=== PATIENT | male | born 1940 | race Caucasian/White ===

== ENCOUNTER → 2016-09-13 | Outpatient (REF) | payer MEDICARE, OTHER ==
[~2016-09-13] MED LIST: APIDINJ SQ; ASPI1TAB PO; ATEN50TA2 PO; ATOR80TA59 PO; ATRO0.06; CLOP75TA2 PO; DULC5TAB PO; ENAL20TA PO; GABA-279 PO; GABA-283 PO; GLUC1INJ2 SQ; HEPA10004 IJ; INSUDET SC; INSUH10VL SC; LEVA12INH INH; LIPI80TA PO; MIRA3350 PO; PANT40TA2 PO; RANI1TAB6 PO; TENO1TAB4 PO; TYLE167L PO; VANC10005 INJ; ZOFR20TA IVP; ZOSY2INJ2 IV
== END ==
LOC: M LAB REF 16:45
PROVIDERS: ATTEND Internal Medicine Nephrology
DX: N39.0 Urinary tract infection, site not specified (principal)

== ENCOUNTER 2019-03-04 15:09 | Inpatient (IN) | payer MEDICARE, OTHER ==
[~2019-03-04] VITALS: Ht 180.3 cm; Wt 91.5 kg
[~2019-03-04 15:09] MED LIST changes: -ASPI1TAB PO; +ASPI81TA26 PO; +GABA-1171 PO; -GABA-279 PO; -GABA-283 PO; +GABA-845 PO; -PANT40TA2 PO; +PANT40TA3 PO; +RANI-356 PO; -RANI1TAB6 PO; -ZOFR20TA IVP; +ZOFR4TAB16 IVP
[2019-03-04 16:05] LABS: BASO # 0.1 10^3/uL (0.0-0.2); BASO % 0.9 % (0.0-1.0); EOS # 0.1 10^3/uL (0.0-0.5); HEMATOCRIT 39.8 % (42.0-52.0); HEMOGLOBIN 13.1 g/dl (13.5-17.5); LYMPH # 2.2 10^3/uL (1.5-5.0); LYMPH % 23.7 % (24.0-44.0); MEAN CORPUSCULAR HEMOGLOBIN 29.4 pg (27.0-33.0); MEAN CORPUSCULAR HGB CONC 32.9 g/dl (32.0-36.5); MEAN CORPUSCULAR VOLUME 89.4 fl (80.0-96.0); MONO # 1.6 10^3/uL (0.0-0.8); MONO % 17.7 % (0.0-5.0); NEUTROPHILS # 5.1 10^3/uL (1.5-8.5); NEUTROPHILS % 56.3 % (36.0-66.0); RED BLOOD COUNT 4.45 10^6/uL (4.30-6.10); WHITE BLOOD COUNT 9.1 10^3/uL (4.0-10.0)
[2019-03-04 16:10] LABS: PLATELET COUNT, AUTOMATED 91 10^3/uL (150-450)
[2019-03-04] MEDS ORDERED: NITROGLYCERIN 2% OINT 1 GM *U/D* PKT TOP ONE (16:15)
[2019-03-04 16:29] LABS: INR 1.07; PROTHROMBIN TIME 13.6 SECONDS (11.8-14.0)
[2019-03-04 16:31] LABS: ALBUMIN 2.8 GM/DL (3.2-5.2); BILIRUBIN,DIRECT 0.2 MG/DL (0.0-0.2); BILIRUBIN,TOTAL 0.6 MG/DL (0.2-1.0); CALCIUM LEVEL 8.6 MG/DL (8.8-10.2); CK-MB VALUE MASS 6.8 NG/ML (<3.6); CREATININE FOR GFR 3.52 MG/DL (0.70-1.30); MB/CK RELATIVE INDEX 2.43 (< OR =4); TOTAL PROTEIN 6.1 GM/DL (6.4-8.2); TROPONIN I 0.08 NG/ML (< 0.10)
[2019-03-04] MEDS ORDERED: ALBUTEROL SULFATE 2.5 MG/0.5 ML INH NEB SOLN INH ONE (17:00)
[2019-03-04] MEDS ORDERED: AMIL5TAB4 PO (17:07)
[2019-03-04] MEDS ORDERED: ALBU83IN NEB (17:07)
[2019-03-04] MEDS ORDERED: ROSU5TAB5 PO (17:07)
[2019-03-04] MEDS ORDERED: NITR0.4S14 PO (17:07)
[2019-03-04] MEDS ORDERED: ASPI81TA26 PO (17:07)
[2019-03-04] MEDS ORDERED: METO1TAB7 PO (17:07)
[2019-03-04] MEDS ORDERED: FURO40TA2 PO (17:07)
--- NOTE | 2019-03-04 17:37 | REP ---
Portable chest, 05:23 p.m., single AP view with the the patient semi upright: Comparison is 02/04/2015. There are bilateral interstitial and alveolar infiltrates as an interval change. There are sternotomy wires, unchanged. Cardiac size is mildly enlarged but is magnified by portable positioning. No pleural effusions are identified. Impression: Bilateral alveolar and interstitial infiltrates. Mild cardiomegaly. Electronically Signed by Flaquito Mcintosh MD 03/04/2019 05:28 P
[2019-03-04] MEDS ORDERED: FUROSEMIDE 40 MG/4 ML VIAL (J1940) IV ONE (17:45)
[2019-03-04] MEDS ORDERED: GLUC3SPR NS (17:56)
[2019-03-04] MEDS ORDERED: D31000TA PO (17:56)
[2019-03-04] MEDS ORDERED: RANI15TA PO (17:56)
[2019-03-04] MEDS ORDERED: GLUC1KIT IM (17:56)
[2019-03-04] MEDS ORDERED: ACET-683 PO (17:56)
[2019-03-04] MEDS ORDERED: GABA-843 PO (17:56)
[2019-03-04] MEDS: FUROSEMIDE 40 MG/4 ML VIAL (J1940) IV SCH (19:00)
[2019-03-04] MEDS ORDERED: GLUCAGON FOR INJ 1 MG VIAL (J1610) IM PRN (19:15)
[2019-03-04] MEDS ORDERED: HumaLOG INSULIN (NovoLOG) PER UNIT SC SCH (19:15)
[2019-03-04] MEDS ORDERED: NITROGLYCERIN 0.4 MG SUBL TABLET SL PRN (19:15)
--- NOTE | 2019-03-04 19:15 | HPEPDOC ---
General Date of Admission 03/04/19 Date of Service: Mar 04, 2019 Attending Physician: MONICO LALA DO Chief Complaint The patient is a 78-year-old male admitted with a reason for visit of Kaitlin rangel. Source: Patient, Family Exam Limitations: No limitations Timing/Duration: Day(s) Severity: Moderate Associated Symptoms: Shortness of breath, Weakness History of Present Illness Patient is 78 years old male with past mental history of chronic kidney disease s, spinal stenosis, back surgery, prostate cancer with previous radiation, type 2 diabetes with nephropathy, neuropathy, coronary artery diseases status post bypass graft in 1991 presented hospital with increased shortness of breath. Patient stated that his shortness of breath has been progressive increased for past few months. Today he was in the auto body mechanic office Dr. Frankel found him volume overloaded send him to ER. In ER patient was found to have BNP around 30,000, GFR 18, chest x-ray showed bilateral interstitial congestion with cardiomegaly. I talked to Dr. Frankel by phone, he recommended start Lasix 40 mg IV every 6. Patient denies fever, chills, nausea, vomiting, diarrhea or dysuria. Patient is afebrile and does not have leukocytosis Home Medications Scheduled Amiloride HCl (Amiloride HCl) 5 Mg Tablet, 10 MG PO DAILY, (Reported) Aspirin (Aspirin EC) 81 Mg Tablet.dr, 81 MG PO DAILY, (Reported) Cholecalciferol (Vitamin D3) (Vitamin D3) 1,000 Unit Tablet, 1,000 UNIT PO DAILY, (Reported) Furosemide (Furosemide) 40 Mg Tablet, 60 MG PO DAILY, (Reported) Gabapentin (Gabapentin) 300 Mg Capsule, 600 MG PO BID, (Reported) Insulin Human Lispro (Novolog) 100 U/Ml Inj, 1 DOSE SC ASDIRECTED, (Reported) VIA INSULIN PUMP Metoprolol Succinate (Metoprolol Succinate) 50 Mg Tab.er.24h, 50 MG PO DAILY, (Reported) Ranitidine Hcl (Ranitidine HCl) 150 Mg Tablet, 1 TAB PO BID, (Reported) Rosuvastatin Calcium (Rosuvastatin Calcium) 5 Mg Tablet, 5 MG PO QHS, (Reported) Scheduled PRN Acetaminophen (Acetaminophen) 500 Mg Tablet, 1,000 MG PO Q6H PRN for PAIN, (Reported) Albuterol Sulf (Albuterol Sulfate) 2.5 Mg/3 Ml Vial.neb, 2.5 MG NEB Q4H PRN for SHORTNESS OF BREATH, (Reported) Glucagon (Baqsimi) 3 Mg [place], 3 MG NS ASDIRECTED PRN for BLOOD SUGAR < 50, (Reported) Glucagon,Human Recombinant (Glucagon Emergency Kit) 1 Mg Vial, 1 MG IM ASDIREC RADHA PRN for BLOOD SUGAR < 50, (Reported) Nitroglycerin (Nitroglycerin) 0.4 Mg Tab.subl, 0.4 MG PO Q5MP PRN for CHEST PAIN, (Reported) Allergies Coded Allergies: No Known Allergies (Unverified , 03/04/19) Past Medical History Medical History Coronary artery diseases, bypass surgery in 1991, chronic kidney diseases, history of prostate cancer treated with radiation and surgery, diabetes, neuropathy, spinal stenosis, hyperlipidemia Surgical History 6 previous laminectomies, bypass surgery, surgical treatment of prostate cancer Family History Father from heart attack Social History * Smoker: former Smoker Alcohol: Denies Drugs: denies A-FIB/CHADSVASC A-FIB History Current/History of A-Fib/PAF?: No Current PO Anticoag Therapy: No Review of Systems Constitutional: Denies: Chills, Fever Eyes: Denies: Pain, Vision change ENT: Denies: Head Aches, Ear Pain Skin: Denies: Rash, Lesions Pulmonary: Reports: Dyspnea Cardiovascular: Reports: Orthopnea, Paroxysmal Noc. Dyspnea; Denies: Chest Pain, Palpitations Gastrointestinal: Denies: Nausea, Vomiting Genitourinary: Denies: Dysuria, Frequency Hematologic: Denies: Bruising, Bleeding Excessively Endocrine: Denies: Polydipsia, Polyphagia Musculoskeletal: Denies: Neck Pain, Back Pain Neurological: Denies: Weakness, Numbness Psych: Reports: Mood Normal; Denies: Anxiety Physical Examination General Exam: Positive: Alert, Cooperative Eye Exam: Positive: PERRLA ENT Exam: Positive: Atraumatic Neck Exam: Positive: Supple, JVD Chest Exam: Positive: Diminished, Other (crackles bilaterally) Heart Exam: Positive: Rate Normal Telemetry: Positive: No significant arrhythmia Abdomen Exam: Positive: Normal bowel sounds Extremity Exam: Positive: Swelling (+1 pitting edema) Skin Exam: Positive: Nl turgor and temperature Neuro Exam: Positive: Strength at 5/5 X4 ext Psych Exam: Positive: Mental status NL Vital Signs Vital Signs Date Time Temp Pulse Resp B/P (MAP) Pulse Ox O2 Delivery O2 Flow Rate FiO2 03/04/19 18:00 82 169/95 (119) 03/04/19 17:30 92 03/04/19 17:09 Room Air 03/04/19 15:10 97.2 42 Laboratory Data Labs 24H Laboratory Tests 2 03/04/19 15:51: Immature Granulocyte % (Auto) 0.4, White Blood Count 9.1, Red Blood Count 4.45, Hemoglobin 13.1L, Hematocrit 39.8L, Mean Corpuscular Volume 89.4, Mean Corpuscular Hemoglobin 29.4, Mean Corpuscular Hemoglobin Concent 32.9, Red Cell Distribution Width 17.0H, Platelet Count 91L, Neutrophils (%) (Auto) 56.3, Lymphocytes (%) (Auto) 23.7L, Monocytes (%) (Auto) 17.7H, Eosinophils (%) (Auto) 1.0, Basophils (%) (Auto) 0.9, Neutrophils # (Auto) 5.1, Lymphocytes # (Auto) 2.2, Monocytes # (Auto) 1.6H, Eosinophils # (Auto) 0.1, Basophils # (Auto) 0.1, Nucleated Red Blood Cells % (auto) 0.0, Immature Platelet Fraction 11.8H, Prothrombin Time 13.6, Prothromb Time International Ratio 1.07, Anion Gap 10, Glomerular Filtration Rate 18.0L, Calcium Level 8.6L, Aspartate Amino Transf (AST/SGOT) 23, Alanine Aminotransferase (ALT/SGPT) 20, Alkaline Phosphatase 83, Total Bilirubin 0.6, Direct Bilirubin 0.2, Total Creatine Kinase 280, Creatine Kinase MB 6.8H, Creatine Kinase MB Relative Index 2.43, Troponin I 0.08, [id number]-Btn-[id number]-Type Natriuretic Peptide 85304B, Total Protein 6.1L, Albumin 2.8L, Albumin/Globulin Ratio 0.85L CBC/BMP Laboratory Tests 03/04/19 15:51 Red Blood Count 4.45, Mean Corpuscular Volume 89.4, Mean Corpuscular Hemoglobin 29.4, Mean Corpuscular Hemoglobin Concent 32.9, Red Cell Distribution Width 17.0 H, Neutrophils (%) (Auto) 56.3, Lymphocytes (%) (Auto) 23.7 L, Monocytes (%) (Auto) 17.7 H, Eosinophils (%) (Auto) 1.0, Basophils (%) (Auto) 0.9, Neutrophils # (Auto) 5.1, Lymphocytes # (Auto) 2.2, Monocytes # (Auto) 1.6 H, Eosinophils # (Auto) 0.1, Basophils # (Auto) 0.1 Assessment/Plan Patient is 78 years old male with past mental history of chronic kidney diseases, spinal stenosis, back surgery, prostate cancer with previous radiation, type 2 diabetes with nephropathy, neuropathy, coronary artery diseases status post bypass graft in 1991 presented hospital with increased shortness of breath. Patient stated that his shortness of breath has been progressive increased for past few months. Problems (1) CHF exacerbation Status: Acute Problem Text: Severe volume overload, chest x-ray shows cardiomegaly with vascular congestion Cardiac diet I's and O's Lasix 40 mg IV every 6 Echo (2) Acute renal failure superimposed on stage 4 chronic kidney disease Status: Acute Problem Text: Dr. Frankel follows him continue monitor bmp , creatinine (3) Diabetes Status: Chronic Problem Text: Patient has his own insulin pump ACHS Plan / VTE VTE Prophylaxis Ordered?: Yes MONICO LALA DO Mar 04, 2019 19:15
[2019-03-04] MEDS ORDERED: GLUCAGON FOR INJ 1 MG VIAL (J1610) SC PRN (19:30)
[2019-03-04] MEDS ORDERED: PILL CUTTER 1 EACH XX PRN (19:30)
[2019-03-04] MEDS ORDERED: GLUCOSE 4 GM CHEW TABLET PO PRN (19:30)
[2019-03-04] MEDS ORDERED: DEXTROSE 50% 50 ML SYRINGE IV PRN (19:30)
[2019-03-04] MEDS ORDERED: HEPARIN SOD (PORCINE) 5000 UNITS/ML VIAL SC SCH (21:00)
[2019-03-04 21:50] VITALS: BP 155/88
[2019-03-04] MEDS: FAMOTIDINE 20 MG TAB PO SCH (21:57)
[2019-03-04] MEDS: GABAPENTIN 300 MG CAP PO SCH (21:57)
[2019-03-04] MEDS: ROSUVASTATIN 10 MG TAB (CRESTOR) PO SCH (21:57)
[2019-03-04 23:37] LABS: MAGNESIUM LEVEL 2.3 MG/DL (1.8-2.4); PHOSPHORUS LEVEL 4.7 MG/DL (2.5-4.9)
[2019-03-05] MEDS: FUROSEMIDE 40 MG/4 ML VIAL (J1940) IV SCH ×4 (00:50→18:41)
[2019-03-05] MEDS: ALBUTEROL SULFATE 2.5 MG/0.5 ML INH NEB SOLN NEB PRN ×3 (06:10→18:34)
[2019-03-05 06:18] VITALS: BP 110/80
[2019-03-05 06:49] LABS: CALCIUM LEVEL 8.6 MG/DL (8.8-10.2); CREATININE FOR GFR 3.36 MG/DL (0.70-1.30); MAGNESIUM LEVEL 2.3 MG/DL (1.8-2.4); POTASSIUM SERUM 4.1 MEQ/L (3.5-5.1)
--- NOTE | 2019-03-05 07:34 | ECGEPIP ---
[facility] - ED Test Date: 2019-03-04 Pat Name: ELAINA REES Department: Room: - Gender: Male Set Up Worker: : 1940 Requested By: LEATHA Peter Order Number: [id number] Reading MD: Soham Ndiaye Measurements Intervals [place] Rate: 78 P: 53 FL: 168 QRS: -5 QRSD: 108 T: 43 QT: 411 QTc: 471 Interpretive Statements SINUS RHYTHM POSSIBLE LEFT ATRIAL ENLARGEMENT LEFT VENTRICULAR HYPERTROPHY AND ST-T CHANGE, NEW COMPARED TO 02/04/15 INFERIOR MYOCARDIAL INFARCTION, PROBABLY OLD Electronically Signed on 03-05-2019 7:34:00 EDT by Soham Ndiaye
[2019-03-05 07:35] LABS: HEMOGLOBIN 13.4 g/dl (13.5-17.5); MEAN CORPUSCULAR HEMOGLOBIN 28.6 pg (27.0-33.0); MEAN CORPUSCULAR HGB CONC 31.9 g/dl (32.0-36.5); MEAN CORPUSCULAR VOLUME 89.7 fl (80.0-96.0); RED BLOOD COUNT 4.68 10^6/uL (4.30-6.10); WHITE BLOOD COUNT 9.3 10^3/uL (4.0-10.0)
[2019-03-05 07:37] LABS: PLATELET COUNT, AUTOMATED 92 10^3/uL (150-450)
[2019-03-05] MEDS: ASPIRIN 81 MG ENTERIC TAB PO SCH (08:23)
[2019-03-05] MEDS: FAMOTIDINE 20 MG TAB PO SCH ×2 (08:23→21:01)
[2019-03-05] MEDS: GABAPENTIN 300 MG CAP PO SCH ×2 (08:23→21:01)
[2019-03-05] MEDS: METOPROLOL SUCC (TopROL XL) 50MG **XL** TAB PO SCH (08:24)
[2019-03-05] MEDS: aMILoride 5 MG TAB PO SCH (08:24)
[2019-03-05] MEDS: VITAMIN D 1,000 INTERNATIONAL UNITS TABLET PO SCH (08:24)
--- NOTE | 2019-03-05 13:18 | IPNPDOC ---
Text Note Date of Service The patient was seen on 03/05/19. NOTE Subjective: Patient stated that he feels better today. His breathing markedly improved. Patient had good urine output. Patient denies fever, chills, nausea, vomiting, palpitations, diarrhea Objective: General Exam: Positive: Alert, Cooperative Eye Exam: Positive: PERRLA ENT Exam: Positive: Atraumatic Neck Exam: Positive: Supple, JVD 3-4 cm Chest Exam: Positive: Diminished bilaterally Heart Exam: Positive: Rate Normal Telemetry: Positive: No significant arrhythmia Abdomen Exam: Positive: Normal bowel sounds Extremity Exam: Positive: Swelling (+1 pitting edema) Skin Exam: Positive: Nl turgor and temperature Neuro Exam: Positive: Strength at 5/5 X4 ext Psych Exam: Positive: Mental status NL Assessment/Plan Patient is 78 years old male with past mental history of chronic kidney diseases, spinal stenosis, back surgery, prostate cancer with previous radia tion, type 2 diabetes with nephropathy, neuropathy, coronary artery diseases status post bypass graft in 1991 presented to the hospital with increased shortness of breath. Patient stated that his shortness of breath has been progressive increased for past few months. Problems (1) CHF exacerbation Status: Acute Problem Text: Severe volume overload, chest x-ray shows cardiomegaly with vascular congestion. BNP around 30,000 Good urine output around 2.2 L since admission Cardiac diet I's and O's Lasix IV Echo pending (2) Acute renal failure superimposed on stage 4 chronic kidney disease Status: Acute Problem Text: Dr. Frankel follows him continue monitor bmp , creatinine (3) Diabetes Status: Chronic Problem Text: Patient has his own insulin pump ACHS VS,Fishbone, I+O VS, Fishbone, I+O Laboratory Tests 03/04/19 15:51 Red Blood Count 4.45, Mean Corpuscular Volume 89.4, Mean Corpuscular Hemoglobin 29.4, Mean Corpuscular Hemoglobin Concent 32.9, Red Cell Distribution Width 17.0 H, Neutrophils (%) (Auto) 56.3, Lymphocytes (%) (Auto) 23.7 L, Monocytes (%) (Auto) 17.7 H, Eosinophils (%) (Auto) 1.0, Basophils (%) (Auto) 0.9, Neutrophils # (Auto) 5.1, Lymphocytes # (Auto) 2.2, Monocytes # (Auto) 1.6 H, Eosinophils # (Auto) 0.1, Basophils # (Auto) 0.1 03/05/19 06:00 Calcium Level 8.6 L 03/05/19 07:19 Red Blood Count 4.68, Mean Corpuscular Volume 89.7, Mean Corpuscular Hemoglobin 28.6, Mean Corpuscular Hemoglobin Concent 31.9 L, Red Cell Distribution Width 17.0 H Vital Signs Date Time Temp Pulse Resp B/P (MAP) Pulse Ox O2 Delivery O2 Flow Rate FiO2 03/05/19 06:18 98.0 83 20 110/80 (90) 97 03/04/19 17:09 Room Air I&O- Last 24 Hours up to 6 AM 03/05/19 06:00 Intake Total 720 ml Output Total 3000 ml Balance -2280 ml MONICO LALA DO Mar 05, 2019 13:18
[2019-03-05 14:00] VITALS: BP 147/83
--- NOTE | 2019-03-05 14:25 | CR ---
DATE OF CONSULTATION: 03/05/2019 REASON FOR CONSULTATION: Acute renal failure and decompensated congestive heart failure. HISTORY OF PRESENT ILLNESS: Mr. Taveras is a 78-year-old gentleman with known history of longstanding insulin-requiring diabetes, hypertension, stage 4 of chronic kidney disease, spinal stenosis with prior back surgery, history of prostate cancer status post radiation, and history of coronary artery disease. He has been short of breath for the last several days and was admitted to [facility] for a couple of days and treated for possible chronic obstructive pulmonary disease (COPD) exacerbation. He was discharged just a couple of days ago. I saw him yesterday in the office and he was still quite short of breath and noticed to be in decompensated congestive heart failure. Hospitalization was advised and the patient agreed and came to [facility] for admission. I did discuss with Dr. Varner about his treatment plan over the phone. The patient is seen this morning. PAST MEDICAL AND SURGICAL HISTORY (Significant for): 1. Longstanding insulin-requiring diabetes, currently on insulin pump. 2. Coronary artery disease, status post coronary artery bypass graft (CABG) in 1991. 3. History of diastolic congestive heart failure. 4. History of stage 4 of chronic kidney disease. 5. History of peripheral neuropathy. 6. History of spinal stenosis, status post back surgery and removal of hardware from back due to infection. 7. History of hyperlipidemia. 8. History of chronic degenerative arthritis. 9. Secondary hyperparathyroidism. 10. History of gout. MEDICATIONS: Chronic medications include amiloride 5 mg 2 tablets daily, aspirin 81 mg daily, vitamin D 1000 units daily, furosemide 60 mg daily, gabapentin 300 mg 2 tablets twice a day, NovoLog insulin via insulin pump, metoprolol 50 mg daily, ranitidine 150 mg twice a day, Crestor 5 mg daily, albuterol inhaler as needed for dyspnea and nitroglycerin 0.4 mg as needed for chest pain. PERSONAL AND SOCIAL HISTORY: The patient denies any alcohol or drug use. He is a former smoker. FAMILY HISTORY: Negative for end-stage renal disease. His father from heart problems. REVIEW OF SYSTEMS: The patient denies any fever or chills. He is short of breath even at rest, but gets worse on exertion. Ears, nose and throat are unremarkable. Cardiovascular system is negative for chest pain, but he does have some leg edema. Respiratory system is significant for history of COPD. He reports worsening dyspnea on exertion. Denies any hemoptysis or pleuritic type of chest pain. Gastrointestinal (GI) system negative for nausea, vomiting or diarrhea. Genitourinary () system is negative for dysuria or hematuria. Musculoskeletal system significant for chronic degenerative arthritis and chronic back pain. Endocrine system is significant for insulin-requiring diabetes and secondary hyperparathyroidism. Neurological system is significant for spinal stenosis and peripheral neuropathy. Hematological system significant for thrombocytopenia. He is not on any long-term anticoagulation. PHYSICAL EXAMINATION: The patient is awake, alert and without any acute distress. Temperature 97.6 degrees Fahrenheit, heart rate 83 per minute and respiratory rate 20 per minute. Blood pressure 110/80 mmHg and oxygen saturation 97%. Head is atraumatic. Neck is supple and jugular venous distention (JVD) is about 11-12 cm above sternal angle. Pupils equal and reactive to light and sclera is anicteric. Extraocular muscles are intact. Heart sounds are regular and lungs have bilateral rales. Abdomen: Soft and nontender. Bowel sounds normal. Extremities: Without any cyanosis or clubbing. Lower extremity edema is at least 1+ bilaterally. Neurologically, he is awake, alert and oriented times three. LABORATORY DATA: His hemoglobin was 13 and hematocrit 39.8 on admission yesterday and WBC count 9.1. BUN was 49 and creatinine about 3.9. A BNP level was 30,665. Today, his sodium is 138, potassium 4.1, CO2 24, BUN 46 and creatinine 3.36. Glucose 102 and calcium 8.6. PROBLEMS: 1. Acute renal failure superimposed on chronic kidney disease. The patient has known history of stage 4 of chronic kidney disease at baseline which is probably related to vascular disease and diabetic nephropathy. Acute renal failure is most likely related to decompensated congestive heart failure. At present, he does not have any uremic symptoms and no electrolyte or metabolic complications. There is no emergent need for dialysis as he is being diuresed. His kidney function will need to be monitored on a daily basis. 2. cute on chronic diastolic congestive heart failure. His volume status is still decompensated. He has diuresed very well since admission with almost 2 liters of negative fluid balance. I would recommend to continue with current diuretic regimen for next 24-48 hours. 3. Hypertension. Blood pressure is usually well controlled with current medications including diuretic and metoprolol. He is being diuresed now with intravenous Lasix. We can continue with amiloride in order to prevent hypokalemia. 4. Spinal stenosis and chronic back pain. The patient has been taking narcotic medications and is now planning to get a dorsal stimulator implanted. He understands not to use any nonsteroidal anti-inflammatory drugs (NSAIDs). Thank you for involving me in the care of Mr. Taveras. I will follow him along with you.
[2019-03-05 20:00] VITALS: BP 140/80
[2019-03-05] MEDS: ROSUVASTATIN 10 MG TAB (CRESTOR) PO SCH (21:02)
[2019-03-06] MEDS: FUROSEMIDE 40 MG/4 ML VIAL (J1940) IV SCH ×5 (00:34→23:36)
[2019-03-06 06:48] LABS: HEMATOCRIT 44.1 % (42.0-52.0); HEMOGLOBIN 14.1 g/dl (13.5-17.5); MEAN CORPUSCULAR HEMOGLOBIN 28.7 pg (27.0-33.0); MEAN CORPUSCULAR VOLUME 89.8 fl (80.0-96.0); RED BLOOD COUNT 4.91 10^6/uL (4.30-6.10); WHITE BLOOD COUNT 11.6 10^3/uL (4.0-10.0)
[2019-03-06 06:49] LABS: PLATELET COUNT, AUTOMATED 99 10^3/uL (150-450)
[2019-03-06 06:57] VITALS: BP 146/80
[2019-03-06 07:04] LABS: CALCIUM LEVEL 8.9 MG/DL (8.8-10.2); CREATININE FOR GFR 3.31 MG/DL (0.70-1.30); GLOMERULAR FILTRATION RATE 19.3 (>42); MAGNESIUM LEVEL 2.5 MG/DL (1.8-2.4)
[2019-03-06] MEDS: GABAPENTIN 300 MG CAP PO SCH ×2 (08:39→21:18)
[2019-03-06] MEDS: aMILoride 5 MG TAB PO SCH (08:39)
[2019-03-06] MEDS: FAMOTIDINE 20 MG TAB PO SCH ×2 (08:39→21:18)
[2019-03-06 08:40] VITALS: BP 146/81
[2019-03-06] MEDS: ASPIRIN 81 MG ENTERIC TAB PO SCH (08:40)
[2019-03-06] MEDS: METOPROLOL SUCC (TopROL XL) 50MG **XL** TAB PO SCH (08:40)
[2019-03-06] MEDS: VITAMIN D 1,000 INTERNATIONAL UNITS TABLET PO SCH (08:40)
[2019-03-06] MEDS ORDERED: MIRALAX *UNIT DOSE* 17GM PACKET PO PRN (11:00)
--- NOTE | 2019-03-06 12:47 | IPNPDOC ---
Text Note Date of Service The patient was seen on 03/06/19. NOTE Subjective: No any acute events overnight. Shortness of breath resolved. Patient had good urine output. Patient denies fever, chills, nausea, vomiting, palpitations, diarrhea Objective: General Exam: Positive: Alert, Cooperative Eye Exam: Positive: PERRLA ENT Exam: Positive: Atraumatic Neck Exam: Positive: Supple, no JVD Chest Exam: Positive: Diminished bilaterally Heart Exam: Positive: Rate Normal Telemetry: Positive: No significant arrhythmia Abdomen Exam: Positive: Normal bowel sounds Extremity Exam: Positive: Swelling (+1 pitting edema) Skin Exam: Positive: Nl turgor and temperature Neuro Exam: Positive: Strength at 5/5 X4 ext Psych Exam: Positive: Mental status NL Assessment/Plan Patient is 78 years old male with past mental history of chronic kidney diseases, spinal stenosis, back surgery, prostate cancer with previous radiation, type 2 diabetes with nephropathy, neuropathy, coronary artery diseases status post bypass graft in 1991 presented to the hospital with increased shortness of breath. Patient stated that his shortness of breath has been progressive increased for past few months. Problems (1) CHF exacerbation Status: Acute Problem Text: Severe volume overload, chest x-ray shows cardiomegaly with vascular congestion. BNP around 30,000 Patient continues to have a good urine output Cardiac diet I's and O's Lasix IV Echo pending (2) Acute renal failure superimposed on stage 4 chronic kidney disease Status: Acute Problem Text: Dr. Frankel follows him continue monitor bmp , creatinine (3) Diabetes Status: Chronic Problem Text: Patient has his own insulin pump ACHS VS,Fishbone, I+O VS, Fishbone, I+O Laboratory Tests 03/06/19 06:26 Red Blood Count 4.91, Mean Corpuscular Volume 89.8, Mean Corpuscular Hemoglobin 28.7, Mean Corpuscular Hemoglobin Concent 32.0, Red Cell Distribution Width 16.9 H, Calcium Level 8.9 Vital Signs Date Time Temp Pulse Resp B/P (MAP) Pulse Ox O2 Delivery O2 Flow Rate FiO2 03/06/19 08:40 86 146/81 03/06/19 06:57 99.0 18 92 03/04/19 17:09 Room Air I&O- Last 24 Hours up to 6 AM 03/06/19 06:00 Intake Total 1740 ml Output Total 950 ml Balance 790 ml MONICO LALA DO Mar 06, 2019 12:47
--- NOTE | 2019-03-06 13:36 | ECHO ---
DATE OF STUDY: 03/06/2019 DATE OF : 1940 AGE: 78 REFERRING PROVIDER: Dr. Oleksandr Samuel REASON FOR THE STUDY: Cardiac dysrhythmia. 2D MEASUREMENTS: IVS: 1.0 cm LV: 4.4 cm LVPW: 1.0 cm LA: 3.8 cm Aorta: 2.9 cm RV: 2.4 cm IVC: 2.3 cm DOPPLER MEASUREMENTS: Peak velocity across the aortic valve: 1.5 m/s Peak velocity cross the LVOT: 0.92 m/s Mitral E: 1.3 Mitral A: 0.69 with a ratio of 1.9 Maximum tricuspid valve velocity: 3.2 m/s 2D COMMENTS: 1. Normal left ventricular size and wall thickness, but left ventricular systolic function appeared to be mildly depressed. There was mild global hypokinesis with an estimated left ventricular systolic ejection fraction of 45%. 2. Subjectively, the left atrium appeared to be mildly enlarged. Normal right atrium and right ventricle. 3. The atrial septum appeared to be normal without evidence of defect or shunt. 4. Normal aortic root. 5. No pericardial effusion seen. 6. Mildly calcified aortic valve with normal leaflet excursion. Mildly calcified mitral annulus with normal anterior mitral valve leaflet motion. Normal tricuspid valve and pulmonic valves. The proximal pulmonary artery branches were not well visualized. 7. The inferior vena cava was mildly enlarged; central venous pressure might be elevated. DOPPLER: It detects mild aortic regurgitation, mild mitral regurgitation, and mild tricuspid regurgitation. The calculated pulmonary artery systolic pressure varies between 40 to 50 mmHg. Abnormal relaxation pattern was noted across the mitral valve annulus, consistent with features of grade 2 left ventricular diastolic dysfunction. IMPRESSION: 1. Probably mild global left ventricular systolic dysfunction with global hypokinesis. There are some features of grade 2 left ventricular diastolic dysfunction; left ventricular end diastolic pressure might be elevated. 2. Aortic valve sclerosis with mild aortic regurgitation but no aortic stenosis. 3. Mitral annulus calcification with mild mitral regurgitation. 4. Mild tricuspid regurgitation with probably moderate pulmonary hypertension.
--- NOTE | 2019-03-06 14:27 | IPN ---
DATE OF SERVICE: 03/06/2019 SUBJECTIVE: The patient was seen and examined at the bedside today morning. The patient reports that the shortness of breath is getting better. He continues to be on IV diuretics. Urine output was more than 2 liters yesterday. Creatinine is stable at 3.3 since yesterday. The patient is also getting nebulizations for wheezing. He denies any active complaints at this time. OBJECTIVE: Vital Signs: Temperature is 99 degrees Fahrenheit, blood pressure 146/80, pulse is 83, respiratory rate of 18, saturating 92% on room air. Intake and Output: Urine output recorded as 2.2 liters yesterday. Urine output since overnight is not recorded so far at this time. Weight in the bed scale is not available. PHYSICAL EXAMINATION: General: The patient is awake, alert, oriented times three, laying in bed in no apparent distress. Head and Neck Exam: Extraocular muscles intact. Pupils equally round and reactive to light. Mucous membranes are moist. Neck is supple. There is mildly elevated jugular venous distention (JVD). Cardiovascular: S1 and S2. Regular rate. 2+ edema of the bilateral ankles. Respiratory: Mild expiratory rhonchi at the bases, otherwise bilateral equal air entry. Abdomen: Soft. Positive bowel sounds. Nontender. No organomegaly. Musculoskeletal: No clubbing or cyanosis. Pulses are 2+. RESIDENTIAL COLLECTIONS: No focal deficit. Power is 5/5 in all extremities. LAB REVIEW: CBC showed WBC 11.6, hemoglobin 14.1, platelets of 99. BMP showed sodium 138, potassium 4, chloride 102, bicarb 29, BUN 51, creatinine is 3.3, phosphorus 2.5. CURRENT INPATIENT MEDICATIONS: The patient's medications were all reviewed by me continues to be on amiloride 10 mg daily, Lasix 40 mg IV q. six hourly. He is also getting nebulizations p.r.n. q. four. No other change in the medications today as compared with yesterday. ASSESSMENT/PLAN: 1. Acute kidney injury superimposed on chronic kidney disease Stage 4. The patient's renal function has been staying stable. GFR is around 19. He is tolerating the IV diuretics. No urgent need of hemodialysis. Continue the optimization of fluid status with Lasix [id number] q. six hourly. 2. Acute on chronic decompensated diastolic congestive heart failure. The patient is making improvement. He is making more than 2 liters of urine a day. Continue Lasix 40 mg q. six hourly and amiloride 10 mg daily. Electrolytes are within the acceptable range. 3. COPD. Continue the nebulizations at this time as well. 4. Hypertension with hypertensive heart disease and chronic kidney disease. Blood pressure is optimal at this time. Continue current dose of diuretics along with metoprolol 50 mg p.o. daily.
[2019-03-06 14:33] VITALS: BP 142/73
[2019-03-06] MEDS: ALBUTEROL SULFATE 2.5 MG/0.5 ML INH NEB SOLN NEB PRN (17:36)
[2019-03-06 20:49] VITALS: BP 155/84
[2019-03-06] MEDS: ROSUVASTATIN 10 MG TAB (CRESTOR) PO SCH (21:18)
[2019-03-06] MEDS: ACETAMINOPHEN 500 MG TAB PO PRN (21:19)
[2019-03-06 23:37] VITALS: BP 151/80
[2019-03-07] MEDS: FUROSEMIDE 40 MG/4 ML VIAL (J1940) IV SCH (05:54)
[2019-03-07 06:22] VITALS: BP 148/82
[2019-03-07 07:32] LABS: HEMATOCRIT 45.7 % (42.0-52.0); HEMOGLOBIN 14.4 g/dl (13.5-17.5); MEAN CORPUSCULAR HEMOGLOBIN 28.7 pg (27.0-33.0); MEAN CORPUSCULAR HGB CONC 31.5 g/dl (32.0-36.5); MEAN CORPUSCULAR VOLUME 91.2 fl (80.0-96.0); RED BLOOD COUNT 5.01 10^6/uL (4.30-6.10); WHITE BLOOD COUNT 8.9 10^3/uL (4.0-10.0)
[2019-03-07 07:49] LABS: PLATELET COUNT, AUTOMATED 95 10^3/uL (150-450)
[2019-03-07 07:51] LABS: CREATININE FOR GFR 3.45 MG/DL (0.70-1.30); GLOMERULAR FILTRATION RATE 18.4 (>42); MAGNESIUM LEVEL 2.4 MG/DL (1.8-2.4); POTASSIUM SERUM 3.9 MEQ/L (3.5-5.1)
[2019-03-07] MEDS: FAMOTIDINE 20 MG TAB PO SCH (08:47)
[2019-03-07] MEDS: aMILoride 5 MG TAB PO SCH (08:48)
[2019-03-07] MEDS: ACETAMINOPHEN 500 MG TAB PO PRN (08:48)
[2019-03-07] MEDS: ASPIRIN 81 MG ENTERIC TAB PO SCH (08:48)
[2019-03-07] MEDS: GABAPENTIN 300 MG CAP PO SCH (08:49)
[2019-03-07] MEDS: METOPROLOL SUCC (TopROL XL) 50MG **XL** TAB PO SCH (08:49)
[2019-03-07] MEDS: VITAMIN D 1,000 INTERNATIONAL UNITS TABLET PO SCH (08:49)
[2019-03-07] MEDS ORDERED: MAGNESIUM CITRATE 300 ML BTL PO ONE (10:30)
[2019-03-07] MEDS ORDERED: FURO80TA2 PO (12:16)
[2019-03-07] MEDS ORDERED: FLEET ENEMA PR PRN (13:30)
--- NOTE | 2019-03-07 15:13 | IPN ---
DATE: 03/07/2019 SUBJECTIVE: Patient was seen and examined at the bedside today morning. All of his family members were also present in the room. His renal function is stable, Creatinine is fluctuating at around 3.33-3.4. He reports his lower extremity edema is improving and shortness of breath is significantly getting better. He continues to be on intravenous (IV) Lasix at this time. OBJECTIVE: VITAL SIGNS: Temperature is 98.7 degrees Fahrenheit, blood pressure 148/82, pulse is 79, respiratory rate of 16, saturating 94% on room air. INTAKE AND OUTPUT: Urine output recorded is 2.7 liters yesterday, 900 mL so far today since overnight. Weight in the bed scale is not available. PHYSICAL EXAMINATION: GENERAL: Patient is awake, alert, oriented times three, sitting up in the bed in no apparent distress. HEAD AND NECK EXAM: Extraocular muscles intact. Pupils equally round and reactive to light. Mucous membranes are moist. Neck is supple. There is no jugular venous distention (JVD). CARDIOVASCULAR: S1, S2. Regular rate. 1+ edema of the ankles. RESPIRATORY: Mildly decreased breath sounds at the bases; otherwise, no active rales or rhonchi. ABDOMEN: Soft. Positive bowel sounds. Nontender. No organomegaly. MUSCULOSKELETAL: No clubbing or cyanosis. Pulses are 2+. CENTRAL NERVOUS SYSTEM (TYPESETTER APPRENTICE): No focal deficit. Power is 5/5 in all extremities. LABORATORY REVIEW: Complete blood count (CBC) showed a WBC of 8.9, hemoglobin 14.4, platelets are 95. Basic metabolic panel (BMP) showed sodium 140, potassium 3.9, chloride 103, bicarbonate 31, BUN 53, creatinine is 3.45, with a GFR of around 18.4, calcium 9, phosphorus is 2.4. CURRENT PATIENT MEDICATIONS: Patient's medications were all reviewed by me. Patient was on Lasix 40 mg IV every 6 hours. I am stopping the IV Lasix and I have placed him on Lasix 80 mg by mouth twice a day. No other change in the medications today as compared with yesterday. ASSESSMENT AND PLAN: 1. Acute kidney injury superimposed on chronic kidney disease stage IV. Patient continues to tolerate higher dose of diuretics. His volume status is significantly better. GFR has been fluctuating between 18-19. No urgent need of dialysis. Patient to follow up with Dr. Frankel as outpatient after discharge. 2. Acute on chronic decompensated diastolic congestive heart failure. Patient's volume status is significantly better. She has minimal edema left around the ankles. At this time, IV diuretics are being stopped. Continue Lasix 80 mg by mouth twice a day and amiloride 10 mg by mouth daily. 3. Hypertension with hypertensive heart disease. Diuretic management is as mentioned above. Continue current dose of metoprolol 50 mg daily. DISPOSITION: It is okay to discharge the patient from a nephrology standpoint. He needs to follow up with nephrology, Dr. Tyrel Frankel, as outpatient within one week of discharge from the hospital.
[2019-03-07] MEDS ORDERED: FUROSEMIDE 80 MG TAB PO SCH (17:00)
--- NOTE | 2019-03-07 17:57 | DS.PDOC ---
Discharge Summary General Date of Admission Mar 04, 2019 at 18:50 Date of Discharge 03/07/19 Attending Physician: MONICO LALA DO Discharge Summary PROCEDURES PERFORMED DURING STAY: None ADMITTING DIAGNOSES: CHF exacerbation Acute renal failure superimposed on stage 4 chronic kidney disease Diabetes Hypertension with hypertensive heart disease DISCHARGE DIAGNOSES: CHF exacerbation Acute renal failure superimposed on stage 4 chronic kidney disease Diabetes Hypertension with hypertensive heart disease COMPLICATIONS/CHIEF COMPLAINT: Chf Exacerbation. HISTORY OF PRESENT ILLNESS: Patient is 78 years old male with past mental history of chronic kidney diseases, spinal stenosis, back surgery, prostate cancer with previous radiation, type 2 diabetes with nephropathy, neuropathy, coronary artery diseases status post bypass graft in 1991 presented hospital with increased shortness of breath. Patient stated that his shortness of breath has been progressive increased for past few months. Today he was in the cardiovascular technician office Dr. Frankel found him volume overloaded send him to ER. In ER patient was found to have BNP around 30,000, GFR 18, chest x-ray showed bilateral interstitial congestion with cardiomegaly. I talked to Dr. Frankel by phone, he recommended start Lasix 40 mg IV every 6. Patient denies fever, chills, nausea, vomiting, diarrhea or dysuria. Patient is afebrile and does not have leukocytosis HOSPITAL COURSE: The following issues were addressed 1. Acute kidney injury superimposed on chronic kidney disease stage IV. Patient continues to tolerate higher dose of diuretics. His volume status is significantly better. GFR has been fluctuating between 18-19. No urgent need of dialysis. Patient to follow up with Dr. Frankel as outpatient after discharge. 2. Acute on chronic decompensated diastolic congestive heart failure. Patient's volume status is significantly better. She has minimal edema left around the ankles. At this time, IV diuretics are being stopped. Continue Lasix 80 mg by mouth twice a day and amiloride 10 mg by mouth daily. 3. Hypertension with hypertensive heart disease. Diuretic management is as mentioned above. Continue current dose of metoprolol 50 mg daily. DISCHARGE MEDICATIONS: Please see below. ALLERGIES: Please see below. PHYSICAL EXAMINATION ON DISCHARGE: VITAL SIGNS: Please see below. General Exam: Positive: Alert, Cooperative Eye Exam: Positive: PERRLA ENT Exam: Positive: Atraumatic Neck Exam: Positive: Supple, JVD Chest Exam: Positive: Diminished, Other (crackles bilaterally) Heart Exam: Positive: Rate Normal Telemetry: Positive: No significant arrhythmia Abdomen Exam: Positive: Normal bowel sounds Extremity Exam: Positive: Swelling (+1 pitting edema) Skin Exam: Positive: Nl turgor and temperature Neuro Exam: Positive: Strength at 5/5 X4 ext Psych Exam: Positive: Mental status NL LABORATORY DATA: Please see below. IMAGING: Portable chest, 05:23 p.m., single AP view with the the patient semi upright: Comparison is 02/04/2015. There are bilateral interstitial and alveolar infiltrates as an interval change. There are sternotomy wires, unchanged. Cardiac size is mildly enlarged but is magnified by portable positioning. No pleural effusions are identified. Impression: Bilateral alveolar and interstitial infiltrates. Mild cardiomegaly. Electronically Signed by Flaquito Mcintosh MD 03/04/2019 05:28 P PROGNOSIS: Favorable ACTIVITY: As tolerated DIET: Cardiac DISCHARGE PLAN: Home DISPOSITION: 01 Home, Self-Care. DISCHARGE INSTRUCTIONS: Continue prescribed medications ITEMS TO FOLLOWUP ON ON OUTPATIENT: Follow-up with cardiovascular technician and PCP DISCHARGE CONDITION: Stable TIME SPENT ON DISCHARGE: Greater than 20 minutes. Vital Signs/I&Os Vital Signs Date Time Temp Pulse Resp B/P (MAP) Pulse Ox O2 Delivery O2 Flow Rate FiO2 03/07/19 06:22 98.7 79 16 148/82 (104) 94 03/04/19 17:09 Room Air I&O- Last 24 Hours up to 6 AM 03/07/19 06:00 Intake Total 2010 ml Output Total 3375 ml Balance -1365 ml Laboratory Data Labs 24H Laboratory Tests 2 03/07/19 07:01: Nucleated Red Blood Cells % (auto) 0.0, Immature Platelet Fraction 11.3H, Anion Gap 6L, Glomerular Filtration Rate 18.4L, Blood Urea Nitrogen 53H, Creatinine 3.45H, Sodium Level 140, Potassium Level 3.9, Chloride Level 103, Carbon Dioxide Level 31, Calcium Level 9.0, Magnesium Level 2.4 CBC/BMP Laboratory Tests 03/07/19 07:01 Red Blood Count 5.01, Mean Corpuscular Volume 91.2, Mean Corpuscular Hemoglobin 28.7, Mean Corpuscular Hemoglobin Concent 31.5 L, Red Cell Distribution Width 17.2 H, Calcium Level 9.0 Discharge Medications Scheduled Amiloride HCl (Amiloride HCl) 5 Mg Tablet, 10 MG PO DAILY, (Reported) Aspirin (Aspirin EC) 81 Mg Tablet.dr, 81 MG PO DAILY, (Reported) Cholecalciferol (Vitamin D3) (Vitamin D3) 1,000 Unit Tablet, 1,000 UNIT PO DAILY, (Reported) Furosemide (Furosemide) 80 Mg Tablet, 80 MG PO BID@ Gabapentin (Gabapentin) 300 Mg Capsule, 600 MG PO BID, (Reported) Insulin Human Lispro (Novolog) 100 U/Ml Inj, 1 DOSE SC ASDIRECTED, (Reported) VIA INSULIN PUMP Metoprolol Succinate (Metoprolol Succinate) 50 Mg Tab.er.24h, 50 MG PO DAILY, (Reported) Ranitidine Hcl (Ranitidine HCl) 150 Mg Tablet, 1 TAB PO BID, (Reported) Rosuvastatin Calcium (Rosuvastatin Calcium) 5 Mg Tablet, 5 MG PO QHS, (Reported) Scheduled PRN Acetaminophen (Acetaminophen) 500 Mg Tablet, 1,000 MG PO Q6H PRN for PAIN, (Repo rted) Albuterol Sulf (Albuterol Sulfate) 2.5 Mg/3 Ml Vial.neb, 2.5 MG NEB Q4H PRN for SHORTNESS OF BREATH, (Reported) Glucagon (Baqsimi) 3 Mg [place], 3 MG NS ASDIRECTED PRN for BLOOD SUGAR < 50, (Reported) Glucagon,Human Recombinant (Glucagon Emergency Kit) 1 Mg Vial, 1 MG IM ASDIRECTED PRN for BLOOD SUGAR < 50, (Reported) Nitroglycerin (Nitroglycerin) 0.4 Mg Tab.subl, 0.4 MG PO Q5MP PRN for CHEST PAIN, (Reported) Allergies Coded Allergies: No Known Allergies (Unverified , 03/04/19) MONICO LALA DO Mar 07, 2019 17:57
== END 2019-03-07 14:10 | disposition home or self-care (01) | DRG 291 ==
LOC: M ED 15:09 → M ED INP 18:50 → M MS5PR 21:35
PROVIDERS: ADMIT Internal Medicine; ATTEND Internal Medicine
DX: I13.0 Hypertensive heart and chronic kidney disease with heart failure and stage 1 through stage 4 chronic kidney disease, or unspecified chronic kidney disease (principal); I50.33 Acute on chronic diastolic (congestive) heart failure; N18.4 Chronic kidney disease, stage 4 (severe); N25.81 Secondary hyperparathyroidism of renal origin; E11.22 Type 2 diabetes mellitus with diabetic chronic kidney disease; E11.21 Type 2 diabetes mellitus with diabetic nephropathy; M10.9 Gout, unspecified; E11.42 Type 2 diabetes mellitus with diabetic polyneuropathy; I25.10 Atherosclerotic heart disease of native coronary artery without angina pectoris; Z95.1 Presence of aortocoronary bypass graft; Z79.4 Long term (current) use of insulin; Z79.899 Other long term (current) drug therapy; Z85.46 Personal history of malignant neoplasm of prostate; Z92.3 Personal history of irradiation; Z87.891 Personal history of nicotine dependence

== ENCOUNTER 2019-03-12 16:05 | Inpatient (IN) | payer MEDICARE ==
[~2019-03-12] VITALS: Ht 180.3 cm; Wt 89.1 kg
[2019-03-12] MEDS: HumaLOG INSULIN (NovoLOG) PER UNIT SC SCH (01:07)
[~2019-03-12 16:05] MED LIST changes: +ACET-683 PO; +ALBU83IN NEB; +AMIL5TAB4 PO; +D31000TA PO; +FURO40TA2 PO; +FURO80TA2 PO; +GABA-843 PO; +GLUC1KIT IM; +GLUC3SPR NS; +METO1TAB7 PO; +NITR0.4S14 PO; +RANI15TA PO; +ROSU5TAB5 PO
[2019-03-12] MEDS ORDERED: DEXTROSE 50% 50 ML SYRINGE As Ordered ONE (17:30)
[2019-03-12] MEDS ORDERED: DEXTROSE 50% 50 ML SYRINGE IV STA ×2 (17:34→19:14)
--- NOTE | 2019-03-12 18:15 | REPVR ---
PROCEDURE INFORMATION: Exam: CT Head Without Contrast Exam date and time: 03/12/2019 5:44 PM Clinical history: 78 years old, male; Syncope and collapse TECHNIQUE: Imaging protocol: Computed tomography of the head without contrast. Radiation optimization: All CT scans at this facility use at least one of these dose optimization techniques: automated exposure control; mA and/or kV adjustment per patient size (includes targeted exams where dose is matched to clinical indication); or iterative reconstruction. COMPARISON: No relevant prior studies available. FINDINGS: Brain: There is no acute intracranial hemorrhage, cerebral edema, or midline shift. A chronic left occipital infarct is present. Chronic microvascular ischemic changes are seen in the periventricular white matter. Age-related cerebral and cerebellar volume loss is present. Ventricles: Moderate ex vacuo dilation of the lateral and third ventricles is noted. Bones/joints: No acute fracture. Sinuses: There is no acute sinusitis. Mastoid air cells: The mastoid air cells are clear. Orbits: The included orbital structures are unremarkable. Soft tissues: Unremarkable. Vasculature: Atherosclerotic calcifications are seen involving the cavernous carotid arteries. IMPRESSION: 1. No acute intracranial abnormality. 2. Atrophy and chronic deep white matter ischemic change. Electronically signed by: Steven Mccloud On 03/12/2019 18:15:22 PM
--- NOTE | 2019-03-12 18:19 | REPVR ---
PROCEDURE INFORMATION: Exam: CT Cervical Spine Without Contrast Exam date and time: 03/12/2019 5:44 PM Clinical history: 78 years old, male; Other: Syncope TECHNIQUE: Imaging protocol: Computed tomography images of the cervical spine without contrast. Radiation optimization: All CT scans at this facility use at least one of these dose optimization techniques: automated exposure control; mA and/or kV adjustment per patient size (includes targeted exams where dose is matched to clinical indication); or iterative reconstruction. COMPARISON: No relevant prior studies available. FINDINGS: Vertebrae: There is straightening of the normal cervical lordosis. There is mild retrolisthesis of C3 on C4 and C6 on C7. No acute fracture is seen. Discs/Spinal canal/Neural foramina: Severe degenerative changes of the cervical spine are present. There is moderate/severe spinal canal stenosis at C3-4, C4-5, C5-6, and C6-7. Multilevel neural foraminal narrowing from uncinate spurring and facet arthropathy is noted. Soft tissues: Unremarkable. Lungs: Fibrosis is noted in the lung apices. Vasculature: Atherosclerotic calcifications are present at the carotid bifurcations. IMPRESSION: 1. No acute abnormality. 2. Chronic findings as discussed above. Electronically signed by: Steven Mccloud On 03/12/2019 18:19:39 PM
[2019-03-12 18:37] LABS: VENOUS BASE EXCESS -1.1 (-2.0-2.0); VENOUS HCO3 24.3 MEQ/L (23.0-27.0); VENOUS O2 SATURATION 91.8 % (60.0-80.0); VENOUS PARTIAL PRESSURE CO2 43.1 mmHg (38.0-50.0); VENOUS PARTIAL PRESSURE O2 66.7 mmHg (30.0-50.0); VENOUS PH 7.369 UNITS (7.330-7.430); VENOUS STANDARD HCO3 23.4 MEQ/L; VENOUS TOTAL CO2 25.6 MEQ/L (24.0-28.0)
[2019-03-12 18:50] LABS: BASO # 0.1 10^3/uL (0.0-0.2); BASO % 0.9 % (0.0-1.0); EOS # 0.1 10^3/uL (0.0-0.5); EOS % 1.3 % (0.0-3.0); HEMATOCRIT 43.2 % (42.0-52.0); HEMOGLOBIN 13.6 g/dl (13.5-17.5); LYMPH # 1.9 10^3/uL (1.5-5.0); LYMPH % 21.9 % (24.0-44.0); MEAN CORPUSCULAR HEMOGLOBIN 28.1 pg (27.0-33.0); MEAN CORPUSCULAR HGB CONC 31.5 g/dl (32.0-36.5); MEAN CORPUSCULAR VOLUME 89.3 fl (80.0-96.0); MONO # 1.3 10^3/uL (0.0-0.8); MONO % 15.4 % (0.0-5.0); NEUTROPHILS # 5.2 10^3/uL (1.5-8.5); PLATELET COUNT, AUTOMATED 101 10^3/uL (150-450); RED BLOOD COUNT 4.84 10^6/uL (4.30-6.10); WHITE BLOOD COUNT 8.7 10^3/uL (4.0-10.0)
[2019-03-12] MEDS: D10W 1,000 ML IV SCH ×2 (19:07→23:20)
--- NOTE | 2019-03-12 19:08 | REP ---
Portable chest x-ray: Single view. History: Syncope. Comparison study: March 04, 2019. Findings: Monitoring electrodes are seen overlying the chest. Median sternotomy wires are noted. There is an old healed somewhat angulated fracture of the right clavicle. There is a electronic device overlying the right shoulder. There is advanced diffuse interstitial fibrosis pattern in the lung sales. Mild to moderate cardiomegaly is observed. There is no evidence of pleural effusion. The interstitial fibrosis pattern is more pronounced than on the 2015 prior study. Impression: Advanced diffuse interstitial fibrosis pattern peripherally. Mild cardiomegaly. Prior sternotomy. Electronically Signed by Alexandru See MD 03/12/2019 07:00 P
[2019-03-12 19:12] LABS: CALCIUM LEVEL 8.4 MG/DL (8.8-10.2); CK-MB VALUE MASS 4.5 NG/ML (<3.6); CREATININE FOR GFR 3.64 MG/DL (0.70-1.30); FREE T4 0.86 NG/DL (0.76-1.46); GLOMERULAR FILTRATION RATE 17.3 (>42); MAGNESIUM LEVEL 2.4 MG/DL (1.8-2.4); MB/CK RELATIVE INDEX 3.81 (< OR =4); THYROID STIMULATING HORMONE 5.16 uIU/ML (0.358-3.740); TROPONIN I 0.06 NG/ML (< 0.10)
--- NOTE | 2019-03-12 20:23 | ECGEPIP ---
[facility] - ED Test Date: 2019-03-12 Pat Name: ELAINA REES Department: Room: - Gender: Male [employer] Mixer: : [id number] Requested By: LEATHA Peter Order Number: [id number] Reading MD: Connie Pineda Measurements Intervals [place] Rate: 71 P: 47 MT: 176 QRS: -19 QRSD: 105 T: 76 QT: 407 QTc: 442 Interpretive Statements SINUS RHYTHM Left axis deviation POSSIBLE LEFT ATRIAL ENLARGEMENT LEFT VENTRICULAR HYPERTROPHY AND ST-T CHANGE INFERIOR MYOCARDIAL INFARCTION, PROBABLY OLD W 03/04/19 RATE DECREASED [facility] Electronically Signed on 03-12-2019 20:23:05 EDT by Connie Pineda
[2019-03-12] MEDS ORDERED: GABA-843 PO (21:04)
[2019-03-12] MEDS ORDERED: FURO80TA2 PO (21:04)
[2019-03-13] MEDS ORDERED: GLUCOSE 4 GM CHEW TABLET PO PRN (00:30)
[2019-03-13] MEDS ORDERED: ALBUTEROL SULFATE 2.5 MG/0.5 ML INH NEB SOLN NEB PRN (00:30)
[2019-03-13] MEDS ORDERED: NITROGLYCERIN 0.4 MG SUBL TABLET SL PRN (00:30)
[2019-03-13] MEDS ORDERED: GLUCAGON FOR INJ 1 MG VIAL (J1610) SC PRN (00:30)
[2019-03-13] MEDS ORDERED: DEXTROSE 50% 50 ML SYRINGE IV PRN (00:30)
[2019-03-13] MEDS ORDERED: GLUCAGON FOR INJ 1 MG VIAL (J1610) IM PRN (00:30)
[2019-03-13] MEDS ORDERED: PILL CUTTER 1 EACH XX PRN (00:45)
[2019-03-13] MEDS: ROSUVASTATIN 10 MG TAB (CRESTOR) PO SCH ×2 (01:15→20:07)
[2019-03-13] MEDS: FAMOTIDINE 20 MG TAB PO SCH ×3 (01:15→20:07)
[2019-03-13] MEDS: HumaLOG INSULIN (NovoLOG) PER UNIT SC SCH ×4 (07:56→20:08)
[2019-03-13] MEDS: ASPIRIN 81 MG ENTERIC TAB PO SCH (07:57)
[2019-03-13] MEDS: METOPROLOL SUCC (TopROL XL) 50MG **XL** TAB PO SCH (07:57)
[2019-03-13] MEDS: GABAPENTIN 300 MG CAP PO SCH ×3 (07:57→20:08)
[2019-03-13] MEDS: ACETAMINOPHEN TAB 650MG DOSE (2X325MG) PO PRN (08:01)
[2019-03-13] MEDS ORDERED: FUROSEMIDE 80 MG TAB PO SCH (09:00)
[2019-03-13] MEDS ORDERED: aMILoride 5 MG TAB PO SCH (09:00)
[2019-03-13] MEDS ORDERED: SENOKOT S TAB PO PRN (09:30)
[2019-03-13] MEDS ORDERED: MIRALAX *UNIT DOSE* 17GM PACKET PO PRN (09:30)
--- NOTE | 2019-03-13 09:34 | HPEPDOC ---
General Date of Admission Mar 12, 2019 at 23:16 Date of Service: Mar 12, 2019 Attending Physician: ROHITH ALCARAZ MD Chief Complaint The patient is a 78-year-old male admitted with a reason for visit of Hypoglycemia. Source: Patient Exam Limitations: No limitations Timing/Duration: Week(s) Severity: Severe Associated Symptoms: Syncope, Weakness History of Present Illness 78 yo man with a history of CAD s/p CABG x 3, chronic back pain s/p multiple starr inectomies, prostate CA, CKD and diabetes on an insulin pump fo the last decade+ who presents to the ED with syncopal episode after collapsing on his floor at home in the setting of severe hypoglycemia reporting an increased frequency of symptomatic hypoglycemia for the past few months with frequent falls and fainting spells. Mr. Taveras reports that he had no trouble with his insulin pump for many years and the adjustment was managed by his hot wire glass tube cutter in [facility]. Of note, he was recently admitted for heart failure with volume overload that improved with diuresis and during that admission he had an episode of hypoglycemia and his insulin reduced by 10% per his family with plan to follow up with his hot wire glass tube cutter with an upcoming appointment on 03/16. 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 He therefore returns today after a syncopal episodes that involved hitting his head hard on the floor at his doctor's office. He otherwise reports that he has been eating his normal amounts of food, has a great appetite and the daughters prepares their food, does not have abdominal pain, palpitations, chest pain and has had weight changes due to recently more aggressive diuresis per nephrology for his more advanced. He reports that his basal insulin rate is set at 1.25units/hr giving him an average 30units per 24 hour period. In the ED he had a CT head without acute pathology, had a normal WBC to 8.7, no anemia, Cr 3.64, glucose of 62 that initially did not improve with food and d50 such that d10W was started for hypoglycemia that eventually resolved and the D10W was stopped. Home Medications Scheduled Amiloride HCl (Amiloride HCl) 5 Mg Tablet, 10 MG PO DAILY, (Reported) Aspirin (Aspirin EC) 81 Mg Tablet.dr, 81 MG PO DAILY, (Reported) Furosemide (Furosemide) 80 Mg Tablet, 80 MG PO BID, (Reported) TAKES AT 0900 AND 1700 Gabapentin (Gabapentin) 300 Mg Capsule, 600 MG PO BID, (Reported) Gabapentin (Gabapentin) 300 Mg Capsule, 300 MG PO DAILY, (Reported) TAKES AT NOON Insulin Human Lispro (Novolog) 100 U/Ml Inj, 1 DOSE SC ASDIRECTED, (Reported) VIA INSULIN PUMP. SPOUSE STATES IT WAS TURNED OFF AT 1530 TODAY Metoprolol Succinate (Metoprolol Succinate) 50 Mg Tab.er.24h, 50 MG PO DAILY, (Reported) Ranitidine Hcl (Ranitidine HCl) 150 Mg Tablet, 1 TAB PO BID, (Reported) Rosuvastatin Calcium (Rosuvastatin Calcium) 5 Mg Tablet, 5 MG PO QHS, (Reported) Scheduled PRN Acetaminophen (Acetaminophen) 500 Mg Tablet, 1,000 MG PO Q6H PRN for PAIN, (Reported) Albuterol Sulf (Albuterol Sulfate) 2.5 Mg/3 Ml Vial.neb, 2.5 MG NEB Q4H PRN for SHORTNESS OF BREATH, (Reported) Glucagon,Human Recombinant (Glucagon Emergency Kit) 1 Mg Vial, 1 MG IM ASDIRECTED PRN for BLOOD SUGAR < 50, (Reported) Nitroglycerin (Nitroglycerin) 0.4 Mg Tab.subl, 0.4 MG PO Q5MP PRN for CHEST PAIN, (Reported) Allergies Coded Allergies: No Known Allergies (Unverified , 03/04/19) Past Medical History Medical History CAD s/p CABG DM c/b nephropathy and neuropathy CKD prostate CA renal calculi chronic back pain Surgical History CABG x 3 vessels Multiple laminectomies Family History Significant Family History: No pertinent family hx Social History * Smoker: Denies Alcohol: Denies Drugs: denies Recent Travel/Sick Contacts: Denies: Recent travel, Recent sick contacts Psychosocial History: No pertinent psych hx A-FIB/CHADSVASC A-FIB History Current/History of A-Fib/PAF?: No Current PO Anticoag Therapy: No Age/Risk Factor Scoring CHADSVASC: CHADSVASC Response (Comments) Value Age Risk Factor Age >/= 75 years old 2 Gender Risk Factor Male 0 Hx of CHF Yes 1 Hx of HTN Yes 1 Hx of Stroke/TIA/or VTE No 0 Hx of Diabetes Yes 1 Hx of Vascular Disease No 0 Total 5 Treatment Treatment ordered: Rivaroxaban Reason Anticoagulant not given: Not indicated/[id number] Review of Systems Constitutional: Denies: Chills, Fever, Night Sweats Eyes: Denies: Pain, Vision change ENT: Denies: Head Aches, Ear Pain, Dysphagia Skin: Denies: Rash, Lesions, Breakdown Pulmonary: Denies: Dyspnea, Cough, Pleuritic Chest Pain, Other Symptoms Cardiovascular: Denies: Chest Pain, Palpitations, Orthopnea, Paroxysmal Noc. Dyspnea, Lt Headedness Gastrointestinal: Denies: Nausea, Vomiting, Abdominal Pain, Diarrhea Genitourinary: Denies: Dysuria, Frequency, Incontinence, Retention Hematologic: Denies: Bruising, Bleeding Excessively Endocrine: Denies: Polydipsia, Polyphagia, Polyuria, Heat Intolerance, Cold I ntolerance, Other Endocrine Sx Musculoskeletal: Reports: Back Pain Psych: Reports: Mood Normal; Denies: Depression, Memory Issues Physical Examination General Exam: Positive: Alert, No Acute Distress Eye Exam: Positive: PERRLA, Conjunctiva & lids normal, EOMI; Negative: Sclera icteric ENT Exam: Positive: Atraumatic, Mucous membr. moist/pink, Pharynx Normal Neck Exam: Positive: Supple; Negative: JVD, thyromegaly Chest Exam: Positive: Clear to auscultation, Normal air movement Heart Exam: Positive: Rate Normal, Regular Rhythm, Normal S1, Normal S2; Negative: Murmurs, Rubs Abdomen Exam: Positive: Normal bowel sounds, Soft; Negative: Tenderness, Hepatospenomegaly Extremity Exam: Positive: Normal pulses; Negative: Clubbing, Cyanosis, Edema Skin Exam: Positive: Nl turgor and temperature; Negative: Breakdown, Lesion Neuro Exam: Positive: Normal Gait, Normal Speech, Cranial Nerves 3-12 NL, Reflexes 2+ Psych Exam: Positive: Mental status NL, Mood NL, Oriented x 3 Vital Signs Vital Signs Date Time Temp Pulse Resp B/P (MAP) Pulse Ox O2 Delivery O2 Flow Rate FiO2 03/13/19 07:57 79 146/80 03/13/19 06:56 16 96 Room Air 03/12/19 16:15 97.4 Laboratory Data Labs 24H Laboratory Tests 2 03/12/19 16:17: Bedside Glucose (Misc Panel) 120H 03/12/19 17:29: Bedside Glucose (Misc Panel) 33*L 03/12/19 17:38: Bedside Glucose (Misc Panel) 197H 03/12/19 17:39: Immature Granulocyte % (Auto) 0.5, Neutrophils (%) (Auto) 60.0, Lymphocytes (%) (Auto) 21.9L, Monocytes (%) (Auto) 15.4H, Eosinophils (%) (Auto) 1.3, Basophils (%) (Auto) 0.9, Neutrophils # (Auto) 5.2, Lymphocytes # (Auto) 1.9, Monocytes # (Auto) 1.3H, Eosinophils # (Auto) 0.1, Basophils # (Auto) 0.1, Nucleated Red Blood Cells % (auto) 0.0, Anion Gap 7L, Glomerular Filtration Rate 17.3L, Lactic Acid Level 1.5, Calcium Level 8.4L, Magnesium Level 2.4, Total Creatine Kinase 118, Creatine Kinase MB 4.5H, Creatine Kinase MB Relative Index 3.81, Troponin I 0.06, Thyroid Stimulating Hormone (TSH) 5.160H, Free Thyroxine 0.86 03/12/19 17:53: Urine Color YELLOW, Urine Appearance CLEAR, Urine pH 6.0, Urine Specific [place] 1.011, Urine Protein 3+H, Urine Glucose (UA) 1+H, Urine Ketones NEGATIVE, Urine Blood 1+H, Urine Nitrite NEGATIVE, Urine Bilirubin NEGATIVE, Urine Urobilinogen 0.2, Urine Leukocyte Esterase NEGATIVE, Urine WBC (Auto) 0, Urine RBC (Auto) 6H, Urine Hyaline Casts (Auto) 0, Urine Bacteria (Auto) NEGATIVE, Urine Squamous Epithelial Cells 0, Urine Mucus (Auto) SMALL, Urine Sperm (Auto) , Blood Gas Bi carbonate Standard 23.4, Venous Blood pH 7.369, Venous Blood Partial Pressure CO2 43.1, Venous Blood Partial Pressure O2 66.7H, Venous Blood Total Carbon Dioxide 25.6, Venous Blood HCO3 24.3, Venous Blood Oxygen Saturation 91.8H, Venous Blood Base Excess -1.1 03/12/19 18:47: Bedside Glucose (Misc Panel) 37*L 03/12/19 19:06: Bedside Glucose (Misc Panel) 64L 03/12/19 19:47: Bedside Glucose (Misc Panel) 235H 03/12/19 20:53: Bedside Glucose (Misc Panel) 246H 03/12/19 22:19: Bedside Glucose (Misc Panel) 299H 03/13/19 05:35: Bedside Glucose (Misc Panel) 255H CBC/BMP Laboratory Tests 03/12/19 17:39 Assessment/Plan 78 yo man with DM on an insulin pump with recent complications of frequent hypoglycemic episodes despite continuing his normal PO routine with the only changes being uptitration of diuretics for his by nephrology. At this time it appears the reduction of his insulin pump by 10% did not alleviate the hypoglycemic episodes and given that the pump has been the preferred mode for insulin delivery for years it would be useful to reach out to this hot wire glass tube cutter to optimize the regimen to minimize red flag episodes. For now, I have discontinued the D10W as his sugars have normalize and he was actually hyperglycemic this morning and he will take PO with a sliding scale while discussions are ongoing with his hot wire glass tube cutter about the pump settings. Diabetes: -hold use of insulin pump -SSI ACHS -FSBG ACHS -hypoglycemia protocol -to reach out to patient's endocrinology CKD -continue lasix 80 BID per nephrology -nephrology consult CHF -on diuretics as above CAD -crestor -ASA -Metop Neuropathy -Home gabapentin DVT prophylaxis: SCDs and TEDs, has chronic thrombocytopenia Diet :2g Na and consistent carbohydrate Plan / VTE VTE Prophylaxis Ordered?: Yes ROHITH ALCARAZ MD Mar 13, 2019 09:34
[2019-03-13 09:37] LABS: ALBUMIN 2.9 GM/DL (3.2-5.2); CALCIUM LEVEL 9.1 MG/DL (8.8-10.2); CREATININE FOR GFR 3.49 MG/DL (0.70-1.30); GLOMERULAR FILTRATION RATE 18.2 (>42); POTASSIUM SERUM 4.5 MEQ/L (3.5-5.1)
[2019-03-13] MEDS ORDERED: POLYETHYLENE GLYCOL (MIRALAX) 238GM BOTTLE PO ONE (11:00)
[2019-03-13] MEDS ORDERED: MIRALAX *UNIT DOSE* 17GM PACKET PO ONE (11:30)
--- NOTE | 2019-03-13 11:57 | CR.PDOC ---
General Date of Consultation: Mar 13, 2019 Attending Physician: LA EARLY MD Consultation REASON FOR CONSULTATION/CHIEF COMPLAINT: Management of CKDIV and CHF CC: Brought by EMS for hypoglycemia and Syncope HISTORY OF PRESENT ILLNESS: Jayden Taveras is a 78 YO M with history of DM2, HTN, CKDIV who presented to the ED from the Nephrology clinic with hypoglycemia. The patient experienced a syncopal event after having his routine bloodwork drawn and collapsed in the hallway of the clinic on the way to his exam room. He states that prior to the event he noticed he was having some difficulty walking and using his cane. His blood sugar was checked at this time and was found to be 45. He was taken by EMS to [facility] ED. THe patient does use an insulin pump for consistent glucose monitoring and insulin dosing. Of note, he was recently hospitalized at [facility] and discharged one week ago for heart failure and volume overload. During that hospitalization, his basal insulin dose was reduced. Since that time, he reports his blood sugars have been quite labile and he has had several episodes of hypoglycemia. This morning he reports he is feeling well and his glucose has come up to the 200s overnight. His renal function is stable with a GFR of 17. ALLERGIES: Please see below. HOME MEDICATIONS: Please see below. PAST MEDICAL AND SURGICAL HISTORY: 1. Longstanding insulin-requiring diabetes, currently on insulin pump. 2. Coronary artery disease, status post coronary artery bypass graft (CABG) in 1991. 3. History of diastolic congestive heart failure. 4. History of stage 4 of chronic kidney disease. 5. History of peripheral neuropathy. 6. History of spinal stenosis, status post back surgery and removal of hardware from back due to infection. 7. History of hyperlipidemia. 8. History of chronic degenerative arthritis. 9. Secondary hyperparathyroidism. 10. History of gout. PERSONAL AND SOCIAL HISTORY: The patient denies any alcohol or drug use. He is a former smoker. FAMILY HISTORY: Negative for end-stage renal disease. His father from heart problems REVIEW OF SYSTEMS: CONSTITUTIONAL: Feels well. Denies fevers/chills HEENT: denies vision changes, no sinus problems, denies any trouble swallowing CARDIOVASCULAR: No palpitations reported RESPIRATORY: Denies SOB, dyspnea GENITOURINARY: No dysuria MUSCULOSKELETAL: Denies any joint/muscle pain GASTROINTESTINAL: Denies nausea and diarrhea SKIN: No new rashes or lesions NEUROLOGICAL: No loss of sensation PSYCHIATRIC: Reports normal mood/affect ENDOCRINE: No hot/cold intolerance HEMATOLOGIC/LYMPHATIC: No easy bruising, no lumps/bumps ALLERGIC/IMMUNOLOGIC: No sinus symptoms PHYSICAL EXAMINATION: VITAL SIGNS: Please see below. GENERAL APPEARANCE: Sitting on the edge of the bed, appears stated age, no acute distress HEENT: EOMI, PERRLA, neck is supple with no thyromegaly or lymphadenopathy RESPIRATORY: clear to auscultation bilaterally without any other adventitious breath sounds CARDIOVASCULAR: JVD somewhat elevated, RRR without murmurs/rubs/gallops ABDOMEN: Soft, nontender to palpation, no masses/organomegaly EXTREMITIES: No clubbing/cyanosis/edema NEUROLOGICAL: No obvious focal deficits PSYCHIATRIC: normal mood/affect LABORATORY DATA: Please see below. ASSESSMENT/PLAN: Jayden Taveras is a 78 YOM with history of DM2 with insulin pump, CKDIV who presented from Nephrology clinic with hypoglycemia at 45. 1. Syncopal event 2/2 Hypoglycemia: -Likely due to change in insulin dosing. Will need to be on SSI for next 24-48 hours to determine proper dosing -D/c insulin pump for now in order to determine insulin requirement -Hypoglycemic protocol 2. CKDIV: -Cr 3.49 today, GFR 18. This is consistent with what is has been recently. -Continue Lasix 80 BID 3. HTN: BPs within normal limits -Continue Metoprolol 4. Chronic diastolic CHF: -No evidence of fluid overload at this time. -Continue Lasix 80mg BID DISPO: Pending stability in his blood sugars and determination of proper insulin dosing. Renal function is stable at this time. Vital Signs/I&O Vital Signs Date Time Temp Pulse Resp B/P (MAP) Pulse Ox O2 Delivery O2 Flow Rate FiO2 03/13/19 07:57 79 146/80 03/13/19 06:56 16 96 Room Air 03/12/19 16:15 97.4 I&O- Last 24 Hours up to 6 AM 03/13/19 05:59 Intake Total 300 ml Balance 300 ml Laboratory Data Labs 24H Laboratory Tests 2 03/12/19 16:17: Bedside Glucose (Misc Panel) 120H 03/12/19 17:29: Bedside Glucose (Misc Panel) 33*L 03/12/19 17:38: Bedside Glucose (Misc Panel) 197H 03/12/19 17:39: Immature Granulocyte % (Auto) 0.5, Neutrophils (%) (Auto) 60.0, Lymphocytes (%) (Auto) 21.9L, Monocytes (%) (Auto) 15.4H, Eosinophils (%) (Auto) 1.3, Basophils (%) (Auto) 0.9, Neutrophils # (Auto) 5.2, Lymphocytes # (Auto) 1.9, Monocytes # (Auto) 1.3H, Eosinophils # (Auto) 0.1, Basophils # (Auto) 0.1, Nucleated Red Blood Cells % (auto) 0.0, Anion Gap 7L, Glomerular Filtration Rate 17.3L, Lactic Acid Level 1.5, Calcium Level 8.4L, Magnesium Level 2.4, Total Creatine Kinase 118, Creatine Kinase MB 4.5H, Creatine Kinase MB Relative Index 3.81, Troponin I 0.06, Thyroid Stimulating Hormone (TSH) 5.160H, Free Thyroxine 0.86 03/12/19 17:53: Urine Color YELLOW, Urine Appearance CLEAR, Urine pH 6.0, Urine Specific [place] 1.011, Urine Protein 3+H, Urine Glucose (UA) 1+H, Urine Ketones NEGATIVE, Urine Blood 1+H, Urine Nitrite NEGATIVE, Urine Bilirubin NEGATIVE, Urine Urobilinogen 0.2, Urine Leukocyte Esterase NEGATIVE, Urine WBC (Auto) 0, Urine RBC (Auto) 6H, Urine Hyaline Casts (Auto) 0, Urine Bacteria (Auto) NEGATIVE, Urine Squamous Epithelial Cells 0, Urine Mucus (Auto) SMALL, Urine Sperm (Auto) , Blood Gas Bicarbonate Standard 23.4, Venous Blood pH 7.369, Venous Blood Partial Pressure CO2 43.1, Venous Blood Partial Pressure O2 66.7H, Venous Blood Total Carbon Dioxide 25.6, Venous Blood HCO3 24.3, Venous Blood Oxygen Saturation 91.8H, Ve nous Blood Base Excess -1.1 03/12/19 18:47: Bedside Glucose (Misc Panel) 37*L 03/12/19 19:06: Bedside Glucose (Misc Panel) 64L 03/12/19 19:47: Bedside Glucose (Misc Panel) 235H 03/12/19 20:53: Bedside Glucose (Misc Panel) 246H 03/12/19 22:19: Bedside Glucose (Misc Panel) 299H 03/13/19 05:35: Bedside Glucose (Misc Panel) 255H 03/13/19 08:58: Anion Gap 6L, Glomerular Filtration Rate 18.2L, Calcium Level 9.1, Phosphorus Level 3.0, Albumin 2.9L 03/13/19 11:03: Bedside Glucose (Misc Panel) 323H CBC/BMP Laboratory Tests 03/12/19 17:39 03/13/19 08:58 Allergies Coded Allergies: No Known Allergies (Unverified , 03/04/19) Home Medications Scheduled Amiloride HCl (Amiloride HCl) 5 Mg Tablet, 10 MG PO DAILY, (Reported) Aspirin (Aspirin EC) 81 Mg Tablet.dr, 81 MG PO DAILY, (Reported) Furosemide (Furosemide) 80 Mg Tablet, 80 MG PO BID, (Reported) TAKES AT 0900 AND 1700 Gabapentin (Gabapentin) 300 Mg Capsule, 600 MG PO BID, (Reported) Gabapentin (Gabapentin) 300 Mg Capsule, 300 MG PO DAILY, (Reported) TAKES AT NOON Insulin Human Lispro (Novolog) 100 U/Ml Inj, 1 DOSE SC ASDIRECTED, (Reported) VIA INSULIN PUMP. SPOUSE STATES IT WAS TURNED OFF AT 1530 TODAY Metoprolol Succinate (Metoprolol Succinate) 50 Mg Tab.er.24h, 50 MG PO DAILY, (Reported) Ranitidine Hcl (Ranitidine HCl) 150 Mg Tablet, 1 TAB PO BID, (Reported) Rosuvastatin Calcium (Rosuvastatin Calcium) 5 Mg Tablet, 5 MG PO QHS, (Reported) Scheduled PRN Acetaminophen (Acetaminophen) 500 Mg Tablet, 1,000 MG PO Q6H PRN for PAIN, (Reported) Albuterol Sulf (Albuterol Sulfate) 2.5 Mg/3 Ml Vial.neb, 2.5 MG NEB Q4H PRN for SHORTNESS OF BREATH, (Reported) Glucagon,Human Recombinant (Glucagon Emergency Kit) 1 Mg Vial, 1 MG IM ASDIRECTED PRN for BLOOD SUGAR < 50, (Reported) Nitroglycerin (Nitroglycerin) 0.4 Mg Tab.subl, 0.4 MG PO Q5MP PRN for CHEST PAIN, (Reported) GME ATTESTATION GME ATTESTATION My faculty preceptor for this patient encounter was physically present during the encounter and was fully available. All aspects of the patient interview, examination, medical decision making process, and medical care plan development were reviewed and approved by the faculty preceptor. The faculty preceptor is aware and concurs with the plan as stated in the body of this note and will attest to such by his/her cosignature. ATTENDING NOTE Pt was seen and examined in the ER with the resident. I agree with the resident with the following additions or changes Assessment: Syncope sec to hypoglycemia DM Type 2,Insulin Dependent CKD4 HFpEF HTN with CKD and Hypertensive heart disease. Plan: Insulin Pump stopped. ISS adjustment CKD4 stable at baseline. No need of HD HTN controlled Volume status optimized. EZ GRANDA MD Mar 13, 2019 11:57 LA EARLY MD Mar 13, 2019 21:12
[2019-03-13] MEDS ORDERED: FUROSEMIDE 80 MG TAB PO ONE (12:30)
[2019-03-13 12:51] LABS: BASO # 0.1 10^3/uL (0.0-0.2); BASO % 0.8 % (0.0-1.0); EOS # 0.1 10^3/uL (0.0-0.5); EOS % 0.7 % (0.0-3.0); HEMATOCRIT 44.3 % (42.0-52.0); HEMOGLOBIN 13.8 g/dl (13.5-17.5); LYMPH # 2.1 10^3/uL (1.5-5.0); LYMPH % 24.2 % (24.0-44.0); MEAN CORPUSCULAR HEMOGLOBIN 28.2 pg (27.0-33.0); MEAN CORPUSCULAR HGB CONC 31.2 g/dl (32.0-36.5); MEAN CORPUSCULAR VOLUME 90.4 fl (80.0-96.0); MONO # 1.3 10^3/uL (0.0-0.8); MONO % 14.7 % (0.0-5.0); NEUTROPHILS # 5.1 10^3/uL (1.5-8.5); WHITE BLOOD COUNT 8.6 10^3/uL (4.0-10.0)
[2019-03-13 12:56] LABS: PLATELET COUNT, AUTOMATED 96 10^3/uL (150-450)
[2019-03-13 13:00] LABS: HEMOGLOBIN A1c 6.6 %
[2019-03-13 13:14] LABS: ALBUMIN 2.7 GM/DL (3.2-5.2); BILIRUBIN,TOTAL 0.8 MG/DL (0.2-1.0); C REACTIVE PROTEIN QUANTITATIV 3.45 MG/DL (0.00-0.30); CALCIUM LEVEL 8.5 MG/DL (8.8-10.2); CK-MB VALUE MASS 4.9 NG/ML (<3.6); CREATININE FOR GFR 3.58 MG/DL (0.70-1.30); GLOMERULAR FILTRATION RATE 17.7 (>42); MB/CK RELATIVE INDEX 2.88 (< OR =4); POTASSIUM SERUM 5.2 MEQ/L (3.5-5.1); TOTAL PROTEIN 5.7 GM/DL (6.4-8.2); TROPONIN I 0.04 NG/ML (< 0.10)
[2019-03-13 13:19] LABS: ERYTHROCYTE SEDIMENTATION RATE 16 mm/hr (0-20)
[2019-03-13 15:02] VITALS: BP 135/70
--- NOTE | 2019-03-13 15:53 | IPN ---
DATE: 03/13/2019 The patient states that he has been having syncopal episodes due to severe hypoglycemia as an outpatient with decrease in his insulin by 10% from previous admission. He generally follows with [facility] in [place] and was not in contact with them prior to being admitted. Overnight, the patient had increase in his glucose from 235 to 323 off of the insulin pump. The patient currently denies any lightheadedness, dizziness, diaphoresis, palpitations, or tremors. He denies any shortness of breath, chest pain, pressure, tightness, fevers, chills, dysuria, urgency, frequency. Infectious workup was negative, including unremarkable urinalysis. Chest x-ray was negative. VITAL SIGNS: Temperature 97.4, pulse 79, respiratory rate 16, blood pressure 146/80, 96% on room air. GENERAL: The patient is awake, alert and oriented times three. He is able to provide most of the history. No respiratory distress. No cyanosis. No pallor. Moist mucous membranes. No jugular venous distention (JVD) or thyromegaly or cervical lymphadenopathy. Lungs: Clear to auscultation. No wheezing, rales or rhonchi. Heart: S1, S2. Sinus rhythm. Abdomen: Soft, nontender, nondistended. Normoactive bowel sounds. No rebound, guarding, or hepatosplenomegaly. Extremities: No cyanosis or clubbing. LABORATORY DATA: White count 8.6, hemoglobin 13, hematocrit 44, platelet count 96. Sodium 137, potassium 4.5, chloride 105, bicarbonate 27, BUN 50, creatinine 3.49, glucose 243, A1/c is 6.6, albumin 2.9, procalcitonin is pending. Urinalysis showed 1+ glucose, negative nitrate and leukocyte esterase, 0 WBCs, 6 RBCs. Chest x-ray showed diffuse interstitial fibrosis, mild cardiomegaly and prior sternotomy. ASSESSMENT AND PLAN: This is a 78-year-old male admitted due to recurrent (cut off). Hypoglycemic protocol with basal insulin, rate of 1.25 units per hour. Workup was negative for any infectious etiology. CURRENT ISSUES: 1. Recurrent hypoglycemia. The patient's insulin pump is to be resumed at 1 unit per hour, hold for glucose less than 180. The patient follows with [facility] in [place]. We will attempt to call today for further recommendations. 2. Chronic kidney disease, currently at baseline creatinine. Resume 80 mg of Lasix twice a day as previously scheduled. 3. Congestive heart failure (CHF). Currently euvolemic with no signs of fluid overload. 4. Coronary artery disease. On aspirin, metoprolol and Crestor. 5. Chronic neuropathy. On home gabapentin. DISPOSITION: Await physical therapy (PT) home safety evaluation. Possible discharge in the morning.
[2019-03-13] MEDS: FUROSEMIDE 80 MG TAB PO SCH (17:18)
[2019-03-13 22:00] VITALS: BP 148/84
[2019-03-14 06:00] VITALS: BP 147/83
[2019-03-14 06:57] LABS: HEMATOCRIT 42.7 % (42.0-52.0); HEMOGLOBIN 13.9 g/dl (13.5-17.5); MEAN CORPUSCULAR HEMOGLOBIN 29.2 pg (27.0-33.0); MEAN CORPUSCULAR HGB CONC 32.6 g/dl (32.0-36.5); MEAN CORPUSCULAR VOLUME 89.7 fl (80.0-96.0); PLATELET COUNT, AUTOMATED 105 10^3/uL (150-450); RED BLOOD COUNT 4.76 10^6/uL (4.30-6.10); WHITE BLOOD COUNT 9.3 10^3/uL (4.0-10.0)
[2019-03-14 07:19] LABS: ALBUMIN 2.5 GM/DL (3.2-5.2); BILIRUBIN,TOTAL 1.1 MG/DL (0.2-1.0); CALCIUM LEVEL 8.8 MG/DL (8.8-10.2); CREATININE FOR GFR 3.59 MG/DL (0.70-1.30); GLOMERULAR FILTRATION RATE 17.6 (>42); POTASSIUM SERUM 4.1 MEQ/L (3.5-5.1)
[2019-03-14 08:40] VITALS: BP 147/83
[2019-03-14] MEDS: METOPROLOL SUCC (TopROL XL) 50MG **XL** TAB PO SCH (08:40)
[2019-03-14] MEDS: FAMOTIDINE 20 MG TAB PO SCH (08:40)
[2019-03-14] MEDS: ASPIRIN 81 MG ENTERIC TAB PO SCH (08:40)
[2019-03-14] MEDS: FUROSEMIDE 80 MG TAB PO SCH (08:40)
[2019-03-14] MEDS: GABAPENTIN 300 MG CAP PO SCH ×2 (08:40→12:57)
[2019-03-14] MEDS: ACETAMINOPHEN TAB 650MG DOSE (2X325MG) PO PRN (08:41)
[2019-03-14] MEDS: HumaLOG INSULIN (NovoLOG) PER UNIT SC SCH ×2 (08:42→12:00)
[2019-03-14] MEDS ORDERED: LIDOCAINE 5% (LIDODERM) PATCH TD SCH (10:00)
--- NOTE | 2019-03-14 10:23 | REP ---
Pelvis bilateral hips: Four views. History: History of a fall. Rule out fracture. Right hip pain. Findings: AP view of the pelvis shows laminectomy and surgical fusion changes in the lumbar spine. There are surgical clips in the pelvis bilaterally. Vascular calcification is seen. No pelvic or sacral fracture is seen. No hip fractures noted on either side. AP and frog-leg views demonstrate chondrocalcinosis and smita trochanteric soft tissue calcification bilaterally consistent with tendonitis changes. Impression: No traumatic abnormality noted. Electronically Signed by Alexandru See MD 03/14/2019 10:15 A
--- NOTE | 2019-03-14 10:24 | REP ---
Right femur: Five views. History: Injury in a fall. Findings: Multiple views of the right femur demonstrate vascular calcification extensively, surgical clips in the pelvis and right thigh and knee posteriorly, and a right knee arthroplasty in good position. No fracture or subluxation is seen. There is peritrochanteric soft tissue calcification. Impression: No traumatic abnormality noted. Electronically Signed by Alexandru See MD 03/14/2019 10:16 A
[2019-03-14] MEDS ORDERED: ACETAMINOPHEN 500 MG TAB PO ONE (13:00)
--- NOTE | 2019-03-14 14:34 | IPN ---
DATE OF SERVICE: 03/14/2019 SUBJECTIVE: The patient is seen and examined this morning at the bedside. He complains of pain and discomfort in the right hip. His insulin pump disconnected overnight, his sugars have ranged from 120s to 190s. Vital signs: Temperature 98.5, pulse 80, respiratory rate 18, blood pressure 147/83, saturating 92% on room air. Intake yesterday was 1 liter. There were to voids recorded. Weight in the bed scale today is 89.1 kg. General: The patient is seen sitting at the edge of the bed, legs tingling, elderly male, appears stated age, comfortable, in no acute distress. Extraocular muscles are intact. The neck is supple. There is no jugular venous distension. Lungs were clear to auscultation bilaterally without crackle or rales. Heart sounds are regular. There is no edema in the extremities. Abdomen is soft and nontender to palpation and there are bowel sounds. Extremities are negative for clubbing or edema. Neurologic: He is oriented times three. No focal deficits. Psychiatric appropriate mood and affect. LABS: Sodium 148, potassium 4.1, bicarbonate 27, BUN 52, creatinine 3.5. Femur x-ray March 14, right femur - no traumatic abnormality noted. INPATIENT MEDICATIONS: Reviewed by myself and noted no change from prior. The patient continues on Lasix 80 mg by mouth twice a day which is his home dose. PROBLEMS: 1. Chronic kidney disease (CKD) stage 4. The patient remains at baseline renal function, creatinine 3.5, acceptable electrolytes and compensated volume status. He continues on his usual home diuretic regimen of Lasix 80 mg by mouth twice daily. His potassium level has improved and his magnesium is acceptable, no changes are being made. 2. Hypertension. Blood pressure is well-controlled, no changes are being made to his current regimen of metoprolol 50 mg by mouth daily. 3. Syncopal episode secondary to hypoglycemia. Insulin pump is being managed by the primary team. His fingersticks have been ranging from 130s to 190s. He had x-rays of the hip and femur that did not show any acute trauma. 4. Chronic diastolic congestive heart failure. Volume status is well compensated. Continue current diuretic regimen. 5. Disposition. The patient will be followed intermittently from a nephrology point of view.
[2019-03-14] MEDS ORDERED: **NOTE PATIENT COMMENT** MISC XX SCH (21:00)
--- NOTE | 2019-03-15 11:29 | DSES ---
DATE OF ADMISSION: 03/12/2019 DATE OF DISCHARGE: 03/14/2019 PRIMARY DISCHARGE DIAGNOSES: 1. Hypoglycemia. 2. Right hip contusion. 3. Chronic kidney disease stage IV. 4. Syncope secondary to hypoglycemia. 5. Uncontrolled type 2 diabetes. 6. History of congestive heart failure (CHF) with preserved ejection fraction. 7. History of coronary artery disease (CAD). 8. Chronic neuropathy. DISCHARGE MEDICATIONS: - insulin 1 unit per hour - acetaminophen 1 gram every 6 hours as needed - albuterol 2.5 every 4 hours as needed - amiloride 10 daily - aspirin 81 daily - Lasix 80 twice a day - gabapentin 600 twice a day - gabapentin 300 daily - metoprolol 50 daily - nitroglycerin as needed - ranitidine one tablet twice a day - rosuvastatin 5 mg at bedtime HOSPITAL COURSE: 78-year-old who presented to the emergency room with syncopal episode and hypoglycemia, glucose of 45. The patient's insulin pump was discontinued during his hospitalization. Infectious workup was negative. He did not have a urinary tract infection, pneumonia. CT of the head had no bleed. Due to complaints of right hip pain, hip x-ray and femoral x-ray were all negative. Cervical spine CT showed chronic changes. No acute traumatic abnormality. The patient received Tylenol for pain for the right hip as well as a heating pad with resolution. He was restarted back on the insulin pump at 1 unit per hour with glucose improving from 300 previously to 134. LABS ON DISCHARGE: White count 9.3, hemoglobin 13, hematocrit 42, platelet count 105. Sodium 140, potassium 4.1, chloride 106, bicarb 27, BUN 52, creatinine 3.59, glucose 124. IMAGING STUDIES: CT of head 03/12 no acute intracranial pathology, atrophy in chronic deep white matter, ischemic changes. Chest x-ray 03/12 advanced diffuse interstitial fibrosis peripherally, mild cardiology. Prior sternotomy. Cervical spine CT no acute abnormalities or chronic findings. Hip x-ray 03/14/2019 no traumatic abnormality noted. Femoral x-ray 03/14 no traumatic abnormality noted. TIME SPENT ON DISCHARGE: 30 minutes.
== END 2019-03-14 14:45 | disposition home or self-care (01) | DRG 638 ==
LOC: M ED 16:05 → M ED INP 23:16 → M MS5PR 03-13 14:25
PROVIDERS: ADMIT Internal Medicine; ATTEND Internal Medicine
DX: E11.649 Type 2 diabetes mellitus with hypoglycemia without coma (principal); I13.0 Hypertensive heart and chronic kidney disease with heart failure and stage 1 through stage 4 chronic kidney disease, or unspecified chronic kidney disease; I50.32 Chronic diastolic (congestive) heart failure; N18.4 Chronic kidney disease, stage 4 (severe); E11.22 Type 2 diabetes mellitus with diabetic chronic kidney disease; R55 Syncope and collapse; I25.10 Atherosclerotic heart disease of native coronary artery without angina pectoris; E11.42 Type 2 diabetes mellitus with diabetic polyneuropathy; S70.01XA Contusion of right hip, initial encounter; W01.0XXA Fall on same level from slipping, tripping and stumbling without subsequent striking against object, initial encounter; Y92.009 Unspecified place in unspecified non-institutional (private) residence as the place of occurrence of the external cause; Z95.1 Presence of aortocoronary bypass graft; Z85.46 Personal history of malignant neoplasm of prostate; Z79.4 Long term (current) use of insulin; Z79.82 Long term (current) use of aspirin; Z79.899 Other long term (current) drug therapy; N20.0 Calculus of kidney; M54.9 Dorsalgia, unspecified; E78.5 Hyperlipidemia, unspecified; M19.90 Unspecified osteoarthritis, unspecified site; N25.81 Secondary hyperparathyroidism of renal origin; J84.10 Pulmonary fibrosis, unspecified; E11.65 Type 2 diabetes mellitus with hyperglycemia; D69.6 Thrombocytopenia, unspecified

== ENCOUNTER → 2019-04-02 | Outpatient (CLI) | payer MEDICARE ==
--- NOTE | 2019-04-02 13:04 | REP ---
Bilateral Upper extremity vein mapping: Right upper extremity: Basilic size mm Cephalic size mm Upper humerus 4.0 2.0 Lower humerus 4.0 2.0 Upper forearm 2.0 3.0 Lower forearm/wrist. 2.0 3.0 Median cubital 3.0 -- Arterial PSV Waveform Size mm Axillary 46.2 triphasic 7.0 Brachial 64.3 triphasic 5.0 Radial 65.9 triphasic 2.0 Ulnar 42.0 triphasic 1.0 Left upper extremity: Basilic size mm Cephalic size mm Upper humerus 4.0 2.0 Lower humerus 4.0 2.0 Upper forearm 2.0 2.0 Lower forearm/wrist. 2.0 2.0 Median cubital 3.0 -- Arterial PSV Waveform Size mm Axillary 85.8 biphasic 8.0 Brachial 75.7 biphasic 6.0 Radial 67.8 triphasic 2.0 Ulnar 80.1 triphasic 2.0 There is no evidence of venous thrombosis on the right on the left. Electronically Signed by Flaquito Mcintosh MD 04/02/2019 12:56 P
== END ==
LOC: M RAD 11:12
PROVIDERS: ATTEND Internal Medicine Nephrology
DX: Z01.818 Encounter for other preprocedural examination (principal); N18.4 Chronic kidney disease, stage 4 (severe); I11.0 Hypertensive heart disease with heart failure; I50.33 Acute on chronic diastolic (congestive) heart failure

== ENCOUNTER 2019-05-21 05:55 | Day surgery (SDC) | payer MEDICARE ==
[~2019-05-21] VITALS: Ht 175.3 cm; Wt 83.0 kg
[~2019-05-21 05:55] MED LIST changes: +ALLO10TA PO; +CALC1CAP31 PO; -RANI-356 PO; +RANI-397 PO
[2019-05-21] MEDS ORDERED: ROPIvacaine 0.5% 30 ML INJECTION (J2795 PER 1MG) ONE (05:56)
[2019-05-21] MEDS ORDERED: ceFAZolin SOD 2 GM in IV 1 EA IV ONE (06:00)
[2019-05-21] MEDS ORDERED: LR 1,000 ML IV ONE (06:00)
[2019-05-21] MEDS ORDERED: MIDAZOLAM INJ 2 MG/2 ML VIAL (J2250) As Ordered ONE (06:36)
[2019-05-21] MEDS ORDERED: fentaNYL 100 MCG/2 ML INJECTION (J3010) As Ordered ONE ×2 (06:36→06:58)
[2019-05-21] MEDS ORDERED: FAMO20TA PO (06:43)
[2019-05-21] MEDS ORDERED: LIDOCAINE 1% SDV INJ 30 ML VIAL As Ordered ONE (06:55)
[2019-05-21] MEDS ORDERED: ISOVUE-300 61% 50ML VIAL (Q9967) As Ordered ONE (06:56)
[2019-05-21] MEDS ORDERED: HEPARIN SOD (PORCINE) 5000 UNITS/ML VIAL As Ordered ONE (06:56)
[2019-05-21] MEDS ORDERED: PROPOFOL 500 MG/50 ML VIAL As Ordered ONE (06:57)
[2019-05-21] MEDS ORDERED: LIDOCAINE 2% INJ 100 MG/5 ML SDV (FOR ANES.) As Ordered ONE (06:58)
[2019-05-21] MEDS ORDERED: ONDANSETRON 4MG/2ML VIAL (J2405) As Ordered ONE (06:58)
[2019-05-21] MEDS ORDERED: fentaNYL 100 MCG/2 ML INJECTION (J3010) IV ONE (08:00)
[2019-05-21] MEDS ORDERED: MIDAZOLAM INJ 2 MG/2 ML VIAL (J2250) IV ONE (08:00)
[2019-05-21 08:20] LABS: CALCIUM LEVEL 8.5 MG/DL (8.8-10.2); CREATININE FOR GFR 4.36 MG/DL (0.70-1.30); GLOMERULAR FILTRATION RATE 14.1 (>42); POTASSIUM SERUM 4.2 MEQ/L (3.5-5.1)
--- NOTE | 2019-05-21 09:29 | ROOPDOC ---
[facility] Report Of Operation Report of Operation DATE OF PROCEDURE: 05/21/19 PREPROCEDURE DIAGNOSES: Stage IV renal disease progressing to stage V requiring access for dialysis POSTPROCEDURE DIAGNOSES: Same PROCEDURE: Left brachial basilic AV fistula creation SURGEON: Norman Gage MD ANESTHESIA: Monitored anesthesia care, left upper extremity nerve block, local anesthesia INDICATION FOR PROCEDURE: Mr. Taveras is a very pleasant 78-year-old gentleman with stage IV renal insufficiency progressing to stage V. His current GFR is 14. We discussed the risks benefits and alternatives to the left upper extremity brachial basilic AV fistula creation needs agreeable to proceed. Informed consent was obtained. REPORT OF OPERATION: The patient was brought to the OR in stable condition after a left upper extremity nerve block was placed in preop holding by our anesthesia colleagues. Monitored anesthesia care was administered along with antibiotics without consultation. His left upper extremity was prepped and draped in a sterile fashion. A timeout was performed. Local anesthesia was administered to the skin and subcutaneous tissue just distal to the antecubital crease in the left arm and an incision was made transversely over the brachial artery pulse. Since carried down to the subcutaneous tissue with Bovie cautery. The median cubital vein was identified and skeletonized proximally and distally. There were extensive venous branches in the antecubital region which were suture ligated an d divided. The distal basilic vein was ligated at a branch point in the branch points were connected. A bulldog clamp was placed on the vein after flushing with heparinized saline. We then performed serial dilations with a 3 mm, 43.5 mm, 4 mm, 4.5 mm dilators which all passed easily through the basilic vein in the upper arm. R dissection continued down to the brachial artery which was skeletonized proximally and distally. Vesseloops were placed around the radial artery, the ulnar artery, the proximal brachial artery. We then secured the Vesseloops and a 5 mm arteriotomy was made and flushed with heparinized saline. We then anastomosis the vein to the artery and an end-to-side fashion with 6-0 Prolene suture. Before the final sutures are placed we flushed the inflow and outflow artery and the vein. We then irrigated with heparinized saline and placed her final sutures. We restart flow first to the vein and the inflow artery, and after 10 beats of the heart we restart flow to the hand. Doppler confirmed good flow through the fistula and or thrill was present. We also had triphasic signals at the radial and ulnar artery just distal to the fistula. We had a biphasic signal at the palmar arch that was strong. The hand was warm and well-perfused. We then irrigated with copious amounts of saline and deep tissue was reapproximated with interrupted Vicryl suture. The deep dermal layer was approximated with a running Vicryl suture and the skin was closed with a running subcuticular Monocryl suture. Mastisol and Steri-Strips replace the length of the wound. A dry gauze and Tegaderm was placed over the Steri-Strips as a final dressing. The patient was then allowed to awaken from anesthesia and taken to recovery in stable condition. He tolerated the procedure well. ESTIMATED BLOOD LOSS: Approximately less than 10 mL. COMPLICATIONS: None. SPECIMENS: None DRAINS: None PLAN: Okay for the patient to resume all home medications. He will have a sling on the left upper extremity postop that he can remove once his nerve block wears off. He can shower tomorrow, but no tub baths. He can remove his outer Tegaderm/gauze dressing tomorrow, but leave the Steri-Strips intact at least 7 days to help with healing. Tylenol for analgesia when necessary. NORMAN GAGE MD May 21, 2019 09:29
[2019-05-21 10:40] VITALS: BP 126/69
== END 2019-05-21 10:49 | disposition home or self-care (01) ==
LOC: M SDC 05:55
PROVIDERS: ATTEND Surgery Vascular Surgery
DX: N18.4 Chronic kidney disease, stage 4 (severe) (principal); E10.22 Type 1 diabetes mellitus with diabetic chronic kidney disease; I13.0 Hypertensive heart and chronic kidney disease with heart failure and stage 1 through stage 4 chronic kidney disease, or unspecified chronic kidney disease; I25.10 Atherosclerotic heart disease of native coronary artery without angina pectoris; I25.2 Old myocardial infarction; I50.9 Heart failure, unspecified; E78.00 Pure hypercholesterolemia, unspecified; M10.9 Gout, unspecified; K21.9 Gastro-esophageal reflux disease without esophagitis; M12.9 Arthropathy, unspecified; F32.9 Major depressive disorder, single episode, unspecified; J44.9 Chronic obstructive pulmonary disease, unspecified; M54.2 Cervicalgia; Z79.899 Other long term (current) drug therapy; Z79.82 Long term (current) use of aspirin; Z95.5 Presence of coronary angioplasty implant and graft; Z85.46 Personal history of malignant neoplasm of prostate; Z92.3 Personal history of irradiation; Z96.651 Presence of right artificial knee joint; Z87.891 Personal history of nicotine dependence; Z85.828 Personal history of other malignant neoplasm of skin
CPT/HCPCS: 36821; 64415; 80048; J0690; J2250; J2405; J2795; J3010

== ENCOUNTER 2019-08-18 09:29 | Day surgery (SDC) | payer MEDICARE ==
[~2019-08-18] VITALS: Ht 180.3 cm; Wt 79.8 kg
[~2019-08-18 09:29] MED LIST changes: +FAMO20TA PO; +FURO20TA2 PO; +HYDR-3781 PO; +LIDO5DIS41 TD; +LIDOCAINE 1% MDV 20ML VIAL SQ PRN; +LOPR1TAB6 PO; +LR 1,000 ML IV ONE; +MELA5CAP2 PO; +MUCI600T31 PO; +PROB1CAP10 PO; +QC A650T3 PO; +SENN8.6T28 PO; +TUMS500C PO; +ceFAZolin SOD 2 GM in IV 1 EA IV ONE; +duoneb
[2019-08-18] MEDS ORDERED: fentaNYL 100 MCG/2 ML INJECTION (J3010) As Ordered ONE (10:09)
[2019-08-18] MEDS ORDERED: propofoL 200 MG/20 ML VIAL As Ordered ONE (10:09)
[2019-08-18] MEDS ORDERED: LIDOCAINE 2% INJ 100 MG/5 ML SDV (FOR ANES.) As Ordered ONE (10:09)
[2019-08-18] MEDS ORDERED: MIDAZOLAM INJ 2 MG/2 ML VIAL (J2250) As Ordered ONE (10:09)
[2019-08-18] MEDS ORDERED: ROCA0.25 PO (10:43)
[2019-08-18] MEDS ORDERED: RENV2TAB PO (10:43)
[2019-08-18] MEDS ORDERED: SYMB16INH INH (10:43)
[2019-08-18] MEDS ORDERED: BUPIVACAINE/EPIN 0.5% 30 ML VIAL As Ordered ONE (11:05)
[2019-08-18] MEDS ORDERED: HEPARIN SOD (PORCINE) 5000 UNITS/ML VIAL (J1644 PER 1000UNITS) As Ordered ONE (11:05)
[2019-08-18] MEDS ORDERED: NS 1,000 ML IV SCH ×2 (11:15→15:00)
[2019-08-18] MEDS ORDERED: METOCLOPRAMIDE INJ 10MG/2ML VIAL (J2765) As Ordered ONE (13:48)
[2019-08-18] MEDS ORDERED: ONDANSETRON 4MG/2ML VIAL (J2405) As Ordered ONE (13:48)
[2019-08-18] MEDS ORDERED: OXYC1TAB23 PO (14:42)
--- NOTE | 2019-08-18 14:52 | ROOPDOC ---
[facility] Report Of Operation Report of Operation DATE OF PROCEDURE: 08/18/19 PREPROCEDURE DIAGNOSES: End-stage renal disease with left brachial basilic AV fistula too deep for cannulation POSTPROCEDURE DIAGNOSES: Same PROCEDURE: Left basilic vein transposition SURGEON: Norman Gage MD ANESTHESIA: Local anesthesia and LMA anesthesia INDICATION FOR PROCEDURE: Mr. Taveras is a very pleasant 79-year-old gentleman who is dialyzing with a right IJ PermCath and had a left brachial basilic AV fistula creation that is now mature enough for transposition. Risks benefits and alternatives were explained and the patient is agreeable to proceed. Informed consent was obtained. REPORT OF OPERATION: The patient was brought to the OR in stable condition and placed supine on your table. LMA anesthesia and antibiotics were administered without complication. His left upper extremity was prepped and draped in a sterile fashion. A timeout was performed. Local anesthesia was a microstrategy bi developer to skin and subcutaneous tissue over the basilic vein in the upper arm. A skin knife was used to make an incision over the vein and this was carried down through the subcutaneous tissue with Bovie cautery. Care was taken not to injure to nerves around the vein. Branches of the basilic vein were suture ligated and divided. Careful dissection was used to free the vein circumferentially along the length of her incision. Once the basilic vein was freed the distance from the AV anastomosis to near the axilla, bulldog clamps were placed proximally and distally. A beveled cut was made through the vein near the AV anastomosis and the vein was transposed. It was removed from under the nerves and tunneled through the subcutaneous tissue over the bicep and reanastomosed with running 6- 0 Prolene suture. Care was taken when placing the sutures not to narrow the vein at the anastomosis. The bulldog clamps were removed and the inflow and outflow are flushed. We irrigated with heparinized saline and before the suture was tied, we restored inflow and outflow through the vein to allow the vein to fully expand and make sure we did not narrow the anastomosis while securing the sutures. Good hemostasis was noted. Local anesthesia was administered around the nervous structures. The wounds were copiously irrigated with normal saline. We then closed the space in the subcutaneous tissue with interrupted 3-0 Vicryl sutures. The fascial layer was then closed with a running 3-0 Vicryl suture. The dermal layer was approximated with interrupted 3-0 Vicryl sutures. The skin was closed with a running subcuticular Monocryl suture. The skin was clean and dry. Mastisol and Steri-Strips were placed the length of the incision. 4 x 4's and Tegaderms were placed over this is a final dressing. The patient had an excellent thrill in the fistula and a strong pulse at the wrist. He was allowed to awaken from anesthesia and taken to recovery in stable condition. He tolerated the procedure well. There were no complications. SPECIMENS: None DRAINS: None ESTIMATED BLOOD LOSS: Approximately 10 mL. COMPLICATIONS: None. PLAN: Continue to use PermCath for dialysis. We will see the patient back for follow-up to check the incision and check the fistula maturation. Right now, due to restrictions with Villa virus, it may be difficult for the patient to return for his follow-up appointments, but we would be happy to see him when this is more manageable. We want to make the final decision before the fistula is used for dialysis. I'd like to examine it with ultrasound and check and make sure everything is satisfactory before trying this access for dialysis. Okay to resume home medications and diet at the nursing. Recommend Percocet 5/325 1 tab TID PRN pain. Okay for light activity left upper extremity with no lifting g reater than 5 pounds and no strenuous exercise until the incision is completely healed. Try to leave Steri-Strips intact for 7-10 days to help the incision to heal. Okay to remove outer Tegaderm and gauze dressing after 48 hours if desired. NORMAN GAGE MD Aug 18, 2019 14:52
[2019-08-18] MEDS ORDERED: ONDANSETRON 4MG/2ML VIAL (J2405) IV PRN (15:00)
[2019-08-18] MEDS ORDERED: fentaNYL 100 MCG/2 ML INJECTION (J3010) IV PRN (15:00)
[2019-08-18 15:05] VITALS: BP 91/55
== END 2019-08-18 15:57 | disposition home or self-care (01) ==
LOC: M SDC 09:29
PROVIDERS: ATTEND Surgery Vascular Surgery
DX: N18.6 End stage renal disease (principal); I13.2 Hypertensive heart and chronic kidney disease with heart failure and with stage 5 chronic kidney disease, or end stage renal disease; E10.22 Type 1 diabetes mellitus with diabetic chronic kidney disease; I50.9 Heart failure, unspecified; M10.9 Gout, unspecified; K21.9 Gastro-esophageal reflux disease without esophagitis; D69.6 Thrombocytopenia, unspecified; M12.9 Arthropathy, unspecified; F32.9 Major depressive disorder, single episode, unspecified; J44.9 Chronic obstructive pulmonary disease, unspecified; G47.9 Sleep disorder, unspecified; Z79.899 Other long term (current) drug therapy; Z79.4 Long term (current) use of insulin; Z79.82 Long term (current) use of aspirin; Z92.3 Personal history of irradiation; Z85.46 Personal history of malignant neoplasm of prostate; Z87.891 Personal history of nicotine dependence; Z85.828 Personal history of other malignant neoplasm of skin
CPT/HCPCS: 36415; 36819; 84132; J0690; J1644; J2250; J2405; J2765; J3010

== ENCOUNTER → 2019-11-29 | Outpatient (CLI) | payer MEDICARE ==
[~2019-11-29] MED LIST changes: +DEXTROSE 50% 50 ML SYRINGE As Ordered ONE; -LIDOCAINE 1% MDV 20ML VIAL SQ PRN; +LIDOCAINE W/EPINEPHRINE 1% 20ML VIAL As Ordered ONE; -LR 1,000 ML IV ONE; +OXYC1TAB23 PO; +RENV2TAB PO; +ROCA0.25 PO; +SYMB16INH INH; -ceFAZolin SOD 2 GM in IV 1 EA IV ONE
--- NOTE | 2019-11-29 09:06 | ROOPDOC ---
[facility] Report Of Operation Report of Operation DATE OF PROCEDURE: 11/29/19 PREPROCEDURE DIAGNOSES: End-stage renal disease no longer requiring PermCath for dialysis POSTPROCEDURE DIAGNOSES: Same PROCEDURE: Right IJ PermCath removal SURGEON: Norman Gage MD ANESTHESIA: Local anesthesia 6 mL lidocaine with 1% epinephrine INDICATION FOR PROCEDURE: This is a very pleasant 79-year-old gentleman with end-stage renal disease currently dialyzing with the fistula no longer requiring PermCath for dialysis. Risks benefits and alternatives to PermCath removal were explained to the patient needs agreeable to proceed. Informed consent was obtained. REPORT OF OPERATION: The patient's right neck and chest were prepped and draped in a sterile fashion. A timeout was performed. Local anesthesia was a mess attendant crew to the skin and subcutaneous tissue over the right chest and around the PermCath. The sutures were clipped and removed. Blunt dissection was used to loosen the cuff from the subcutaneous tissue. Pressure was held over the jugular access site and the catheter was removed. The catheter was inspected post-eamon christoph. The cost and the tips were intact. No portion was left behind. Pressure was held for 10 minutes for good hemostasis. Sterile dressings were applied. The patient was then monitored postprocedure to make sure he did not have any bleeding, and then was discharged in stable condition. He tolerated the procedure well. ESTIMATED BLOOD LOSS: Approximately 1 mL. COMPLICATIONS: None. PLAN: Okay to resume home diet and medications. Continue to use AV fistula for dialysis. Try to rest today with head of bed elevated greater than 45 or in a recliner. Try to avoid laying flat or bending over at the waist as this can increase venous pressure and increase the risk of postprocedure bleeding. Okay to remove dressing tomorrow. Okay to shower tomorrow. Replaced dry dressing as needed over the next several days. We appreciate the opportunity to participate in the care of this patient. NORMAN GAGE MD Nov 29, 2019 09:06
[2019-11-29 09:45] VITALS: BP 119/80
== END ==
LOC: M IRPRO 07:46
PROVIDERS: ATTEND Surgery Vascular Surgery
DX: N18.6 End stage renal disease (principal); E11.22 Type 2 diabetes mellitus with diabetic chronic kidney disease; I51.9 Heart disease, unspecified; Z79.4 Long term (current) use of insulin; Z79.82 Long term (current) use of aspirin; Z79.899 Other long term (current) drug therapy; Z95.5 Presence of coronary angioplasty implant and graft; Z96.651 Presence of right artificial knee joint; Z99.2 Dependence on renal dialysis